=== PATIENT | female | born 1955 | race Caucasian/White ===

== ENCOUNTER → 2016-06-07 | Outpatient (CLI) | payer OTHER ==
[2016-06-07 10:09] LABS: ALT 46 U/L (9-52); AST 37 U/L (14-36); Alkaline Phosphatase 81 U/L (38-126); Anion Gap 14 mmol/L; Blood Urea Nitrogen 16 mg/dL (7-17); Calcium 9.6 mg/dL (8.4-10.2); Carbon Dioxide 26 mmol/L (22-30); Chloride 103 mmol/L (98-107); Cholesterol 176 mg/dL (<200); Glucose 136 mg/dL (74-99); HDL Cholesterol 51 mg/dL (40-60); Non-African American GFR(MDRD) >60 (>60 ml/min/1.73 sqM); Potassium 4.6 mmol/L (3.5-5.1); Sodium 143 mmol/L (137-145); Total Bilirubin 0.8 mg/dL (0.2-1.3); Total Protein 8.1 g/dL (6.3-8.2); Triglycerides 113 mg/dL (<150)
== END | disposition home or self-care (01) ==
LOC: LABWHC1 08:48
PROVIDERS: ATTEND Internal Medicine Endocrinology, Diabetes & Metabolism
DX: E11.65 Type 2 diabetes mellitus with hyperglycemia (principal)
CPT/HCPCS: 36415; 80053; 80061; 82043

== ENCOUNTER → 2016-12-27 | Outpatient (CLI) | payer OTHER ==
[2016-12-27 09:13] LABS: Basophils # (A) 0.1 k/uL (0-0.2); Basophils % (A) 1 %; CHCM 30.1; Eosinophils # (A) 0.1 k/uL (0-0.7); Eosinophils % (A) 2 %; HCT 42.5 % (34.0-46.0); HDW 3.02; HGB 13.2 gm/dL (11.4-16.0); Hypochromasia Marked; Luc # (Auto) 0.13; Luc % (Auto) 3; Lymphocytes # (A) 1.2 k/uL (1.0-4.8); Lymphocytes % (A) 22 %; MCH 23.8 pg (25.0-35.0); MCHC 31.2 g/dL (31.0-37.0); MCV 76.5 fL (80.0-100.0); Mean Platelet Volume 6.6; Microcytosis Slight; Monocytes # (A) 0.4 k/uL (0-1.0); Monocytes % (A) 7 %; Neutrophils # (A) 3.4 k/uL (1.3-7.7); Neutrophils % (A) 65 %; RBC 5.55 m/uL (3.80-5.40); RDW 15.7 % (11.5-15.5); WBC 5.3 k/uL (3.8-10.6); WBC (Perox) 5.51
[2016-12-27 09:17] LABS: ALT 64 U/L (9-52); AST 47 U/L (14-36); Alkaline Phosphatase 77 U/L (38-126); Anion Gap 12 mmol/L; Blood Urea Nitrogen 16 mg/dL (7-17); Calcium 9.5 mg/dL (8.4-10.2); Carbon Dioxide 26 mmol/L (22-30); Chloride 103 mmol/L (98-107); Cholesterol 171 mg/dL (<200); Glucose 165 mg/dL (74-99); HDL Cholesterol 51 mg/dL (40-60); Non-African American GFR(MDRD) >60 (>60 ml/min/1.73 sqM); Potassium 4.9 mmol/L (3.5-5.1); Sodium 141 mmol/L (137-145); Total Bilirubin 0.6 mg/dL (0.2-1.3); Total Protein 7.7 g/dL (6.3-8.2)
[2016-12-27 13:50] LABS: Hemoglobin A1C 8.2 % (4.2-6.1)
== END ==
LOC: LABWHC1 08:29
PROVIDERS: ATTEND Internal Medicine
DX: Z00.00 Encounter for general adult medical examination without abnormal findings (principal); E11.21 Type 2 diabetes mellitus with diabetic nephropathy; E03.9 Hypothyroidism, unspecified
CPT/HCPCS: 36415; 80053; 80061; 83036; 84443; 85025

== ENCOUNTER → 2018-04-26 | Outpatient (CLI) | payer OTHER ==
--- NOTE | 2018-04-26 15:54 | XR ---
EXAMINATION TYPE: XR knee complete RT DATE OF EXAM: 04/26/2018 CLINICAL HISTORY: Right knee pain after twisting injury TECHNIQUE: Three views of the right knee are obtained. COMPARISON: None. FINDINGS: There is no acute fracture/dislocation evident in right knee. There is mild medial compart ment joint space narrowing and very small tricompartmental osteophytes.. Fabella is incidentally note d. The overlying soft tissue appears unremarkable. IMPRESSION: There is no acute fracture or dislocation in the right knee. Mild tricompartmental arthr osis.
== END | disposition home or self-care (01) ==
LOC: RADXRMAIN 14:56
PROVIDERS: ATTEND Internal Medicine
DX: M17.11 Unilateral primary osteoarthritis, right knee (principal)

== ENCOUNTER → 2018-12-22 | Outpatient (CLI) | payer OTHER ==
--- NOTE | 2018-12-23 13:41 | MM ---
Reason for exam: screening (asymptomatic). Last mammogram was performed 17 years and 1 month ago. History: Patient is postmenopausal. Physical Findings: A clinical breast exam by your physician is recommended on an annual basis and results should be correlated with mammographic findings. MG Screening Mammo w CAD Bilateral CC and MLO view(s) were taken. Prior study comparison: November 15, 2001, bilateral screening mammogram. September 04, 2000, right breast special view mammogram. The breast tissue is heterogeneously dense. This may lower the sensitivity of mammography. Stable benign calcifications. There is no discrete abnormality. No significant changes when compared with prior studies. ASSESSMENT: Benign, BI-RAD 2 RECOMMENDATION: Routine screening mammogram of both breasts in 1 year.
== END | disposition home or self-care (01) ==
LOC: RADMAMWWP 12:38
PROVIDERS: ATTEND Internal Medicine
DX: Z12.31 Encounter for screening mammogram for malignant neoplasm of breast (principal)
CPT/HCPCS: 77067

== ENCOUNTER → 2019-10-12 | Outpatient (CLI) | payer OTHER | END | disposition home or self-care (01) | LOC: LABWHC1 12:40 | PROVIDERS: ATTEND Internal Medicine | DX: R50.9 Fever, unspecified (principal); R05 Cough; J80 Acute respiratory distress syndrome; Z20.828 Contact with and (suspected) exposure to other viral communicable diseases ==

== ENCOUNTER → 2019-10-28 | Outpatient (CLI) | payer OTHER | END | disposition home or self-care (01) | LOC: LABWHC1 10:39 | PROVIDERS: ATTEND Internal Medicine | DX: U07.1 COVID-19 (principal) | CPT/HCPCS: U0003; C9803 ==

== ENCOUNTER → 2019-10-31 | Outpatient (CLI) | payer OTHER | END | disposition home or self-care (01) | LOC: LABWHC1 15:03 | PROVIDERS: ATTEND Internal Medicine | DX: I06.9 Rheumatic aortic valve disease, unspecified (principal) | CPT/HCPCS: U0003; C9803 ==

== ENCOUNTER → 2020-01-13 | Outpatient (CLI) | payer OTHER, MEDICARE ==
--- NOTE | 2020-01-16 09:49 | MM ---
Reason for exam: screening (asymptomatic). Last mammogram was performed 1 year and 1 month ago. History: Patient is postmenopausal. Physical Findings: A clinical breast exam by your physician is recommended on an annual basis and results should be correlated with mammographic findings. MG 3D Screening Mammo W/Cad Bilateral CC and MLO view(s) were taken. Prior study comparison: December 22, 2018, bilateral MG screening mammo w CAD. November 15, 2001, bilateral screening mammogram. The breast tissue is heterogeneously dense. This may lower the sensitivity of mammography. Stable benign calcifications. There is no discrete abnormality. No significant changes when compared with prior studies. ASSESSMENT: Benign, BI-RAD 2 RECOMMENDATION: Routine screening mammogram of both breasts in 1 year.
== END | disposition home or self-care (01) ==
LOC: RADMAMWWP 12:54
PROVIDERS: ATTEND Family Medicine
DX: Z12.31 Encounter for screening mammogram for malignant neoplasm of breast (principal)
CPT/HCPCS: 77063; 77067

== ENCOUNTER → 2020-08-30 | Outpatient (CLI) | payer OTHER, MEDICARE ==
[2020-08-30 16:35] LABS: African American GFR (CKD) 77.8 (60.0-200.0); Albumin 4.5 g/dL (3.80-4.90); Albumin/Globulin Ratio 1.5 (1.60-3.17); Anion Gap 11.9 mmol/L (4.00-12.00); BUN/Creat Ratio 16.67 Ratio (12.00-20.00); Calcium 9.5 mg/dL (8.7-10.3); Carbon Dioxide 24.1 mmol/L (21.6-31.8); Chol/HDL Ratio 3.65; Non-African American GFR(CKD) 67.1 (60.0-200.0); Potassium 4.3 mmol/L (3.5-5.5); Total Bilirubin 0.6 mg/dL (0.3-1.2); Total Protein 7.5 g/dL (6.2-8.2)
[2020-08-30 19:11] LABS: Hemoglobin A1C 10.2 % (4.0-6.0)
== END | disposition home or self-care (01) ==
LOC: LABWHC1 07:21
PROVIDERS: ATTEND Internal Medicine Endocrinology, Diabetes & Metabolism
DX: E11.65 Type 2 diabetes mellitus with hyperglycemia (principal)
CPT/HCPCS: 36415; 80053; 80061; 83036; 84443

== ENCOUNTER → 2021-06-08 | Outpatient (CLI) | payer BC, MEDICARE ==
[2021-06-08 14:27] LABS: ALT 22 U/L (8-44); AST 33 U/L (13-35); African American GFR (CKD) 108.4 (60.0-200.0); Albumin 4.3 g/dL (3.8-4.9); Albumin/Globulin Ratio 1.24 (1.60-3.17); Alkaline Phosphatase 92 U/L (41-126); Blood Urea Nitrogen 10.8 mg/dL (9.0-27.0); Calcium 9.3 mg/dL (8.7-10.3); Carbon Dioxide 22.7 mmol/L (20.0-27.5); Chloride 103 mmol/L (96-109); Chol/HDL Ratio 3.24 Ratio; Globulin 3.4 g/dL (1.6-3.3); Glucose 143 mg/dL (70-110); LDL Cholesterol,Calculated 72.4 mg/dL (0.0-131.0); Non-African American GFR(CKD) 93.6 (60.0-200.0); Potassium 4.2 mmol/L (3.5-5.5); Sodium 140 mmol/L (135-145); Total Protein 7.7 g/dL (6.2-8.2); VLDL Calculation 18.18 mg/dL (5.00-40.00)
[2021-06-08 20:25] LABS: Microalbumin Creatinine Ratio <30 mg/g Creat (0-30); Urine Creatinine 73.3 mg/dL (28.0-217.0)
== END | disposition home or self-care (01) ==
LOC: LABWHC1 08:18
PROVIDERS: ATTEND Internal Medicine Endocrinology, Diabetes & Metabolism
DX: E11.65 Type 2 diabetes mellitus with hyperglycemia (principal)
CPT/HCPCS: 36415; 80053; 80061; 82043; 82570; 83036; 84443

== ENCOUNTER → 2021-09-17 | Outpatient (CLI) | payer BC, MEDICARE ==
--- NOTE | 2021-09-17 19:17 | BD ---
EXAMINATION TYPE: Axial Bone Density DATE OF EXAM: 09/17/2021 COMPARISON: NONE CLINICAL HISTORY: 65 years year old Female. ICD-10 CODE: Z78.0 Encounter for osteoprosis screening miki stern Z13.820 Height: 5 FT 1/2IN Weight: 187 FRAX RISK QUESTIONS: Alcohol (3 or more units per day): NO Family History (Parent hip fracture): NO Glucocorticoids (More than 3mos): NO (Ex: prednisone, prednisolone, methylprednisolone, dexamethasone, and hydrocortisone). History of Fracture in Adulthood: NO Secondary Osteoporosis: 1. Type 1 Diabetes: TYPE 2 2. Hyperthyroidism: NO 3. Menopause before 45: NO 4. Malnutrition: NO 5. Chronic liver disease: NO Rheumatoid Arthritis: NO Current Tobacco Use: NO RISK FACTORS HISTORY OF: Surgery to Spine/Hip(right/left)/Wrist (right/left): NO Family History of Osteoporosis: NO Active: YES Diet low in dairy products/other sources of calcium: NO Postmenopausal woman: YES Take estrogen and/or progesterone medications: NO Lost more than 2 inches in height since high school: NO Frequent falls: NO Poor Health: GOOD Hyperparathyroidism: NO Adrenal Insufficiency: NO MEDICATIONS: Thyroid Medications: YES Which medication: SYNTHROID How Lon YEARS Additional Medications: SYNTHROID, GLUCOPHAGE, METFORMIN, TRULICITY, LOTENSIN, ZOCOR, GLIMEPIRIDE, N ORVASC, XANAX, LANTUS, HUMALOG Additional History: EXAM MEASUREMENTS: Bone mineral densitometry was performed using the [employer]. Bone mineral density as measured about the Lumbar spine is: ----- L1-L4(G/cm2): 1.230 T Score Values are as follows: ----- L1: -0.5 ----- L2: -0.5 ----- L3: 0.2 ----- L4: 2.1 ----- L1-L4: 0.4 BASELINE Bone mineral density about the R hip (g/cm2): 0.836 Bone mineral density about the L hip (g/cm2): 0.853 T Score values are as follows: -----R Neck: -1.4 -----L Neck: -1.3 -----R Total: -0.2 -----L Total: 0.0 BASELINE FRAX%s: The graph provided illustrates a 8.5 % chance for a major osteoporotic fx and a 0.9 % chance for the hips probability for fx in 10 years time. IMPRESSION: Osteopenia (T Score between -2.5 and -1). There is slightly increased risk of fracture and the patient may be considered for treatment. Re-Screen 2-5 years. NOTE: T-SCORE=SD OF THE YOUNG ADULT MEAN.
== END | disposition home or self-care (01) ==
LOC: RADMAMWWP 15:00
PROVIDERS: ATTEND Internal Medicine
DX: Z13.820 Encounter for screening for osteoporosis (principal); Z12.31 Encounter for screening mammogram for malignant neoplasm of breast; Z78.0 Asymptomatic menopausal state
CPT/HCPCS: 77063; 77067; 77080

== ENCOUNTER → 2021-10-19 | Outpatient (CLI) | payer BC, MEDICARE ==
[2021-10-19 12:32] LABS: ALT 21 U/L (8-44); AST 35 U/L (13-35); African American GFR (CKD) 104.6 (60.0-200.0); Albumin 4.3 g/dL (3.8-4.9); Albumin/Globulin Ratio 1.23 (1.60-3.17); Alkaline Phosphatase 109 U/L (41-126); BUN/Creat Ratio 16.29 Ratio (12.00-20.00); Blood Urea Nitrogen 11.4 mg/dL (9.0-27.0); Calcium 9.4 mg/dL (8.7-10.3); Chloride 100 mmol/L (96-109); Chol/HDL Ratio 3.04 Ratio; Globulin 3.5 g/dL (1.6-3.3); Glucose 158 mg/dL (70-110); LDL Cholesterol,Calculated 68.2 mg/dL (0.0-131.0); Non-African American GFR(CKD) 90.3 (60.0-200.0); Potassium 4.6 mmol/L (3.5-5.5); Sodium 137 mmol/L (135-145); Total Protein 7.8 g/dL (6.2-8.2); VLDL Calculation 13.66 mg/dL (5.00-40.00)
[2021-10-19 22:18] LABS: Microalbumin Creatinine Ratio <30 mg/g Creat (0-30); Urine Creatinine 91.5 mg/dL (28.0-217.0)
== END | disposition home or self-care (01) ==
LOC: LABWHC1 08:06
PROVIDERS: ATTEND Internal Medicine Endocrinology, Diabetes & Metabolism
DX: E11.65 Type 2 diabetes mellitus with hyperglycemia (principal)
CPT/HCPCS: 36415; 80053; 80061; 82043; 82570; 83036; 84443

== ENCOUNTER → 2022-04-24 | Outpatient (CLI) | payer MEDICARE ==
[2022-04-24 11:27] LABS: Microalbumin Creatinine Ratio <30 mg/g Creat (0-30); Urine Creatinine 88.8 mg/dL (28.0-217.0)
[2022-04-24 12:03] LABS: ALT 16 U/L (8-44); AST 30 U/L (13-35); African American GFR (CKD) 109.3 (60.0-200.0); Albumin 4.7 g/dL (3.8-4.9); Albumin/Globulin Ratio 1.31 (1.60-3.17); Alkaline Phosphatase 97 U/L (41-126); BUN/Creat Ratio 20.83 Ratio (12.00-20.00); Blood Urea Nitrogen 12.5 mg/dL (9.0-27.0); Calcium 9.4 mg/dL (8.7-10.3); Carbon Dioxide 23.2 mmol/L (20.0-27.5); Chloride 101 mmol/L (96-109); Chol/HDL Ratio 2.95 Ratio; Globulin 3.6 g/dL (1.6-3.3); Glucose 169 mg/dL (70-110); LDL Cholesterol,Calculated 66.1 mg/dL (0.0-131.0); Non-African American GFR(CKD) 94.3 (60.0-200.0); Potassium 4.2 mmol/L (3.5-5.5); Sodium 138 mmol/L (135-145); Total Protein 8.3 g/dL (6.2-8.2); VLDL Calculation 14.58 mg/dL (5.00-40.00)
== END | disposition home or self-care (01) ==
LOC: LABWHC1 08:06
PROVIDERS: ATTEND Internal Medicine Endocrinology, Diabetes & Metabolism
DX: E11.65 Type 2 diabetes mellitus with hyperglycemia (principal)
CPT/HCPCS: 36415; 80053; 80061; 82043; 82570; 83036; 84443

== ENCOUNTER 2022-06-24 20:10 | Observation (INO) | payer MEDICARE ==
[2022-06-24 21:17] LABS: Anisocytosis Slight; Basophils # (A) 0.1 k/uL (0-0.2); Basophils % (A) 2 %; Eosinophils # (A) 0.1 k/uL (0-0.7); Eosinophils % (A) 2 %; HCT 23.6 % (34.0-46.0); Hypochromasia Marked; Lymphocytes # (A) 0.8 k/uL (1.0-4.8); Lymphocytes % (A) 15 %; MCH 15.3 pg (25.0-35.0); MCHC 25.6 g/dL (31.0-37.0); MCV 59.9 fL (80.0-100.0); Mean Platelet Volume 6.9; Microcytosis Marked; Monocytes # (A) 0.4 k/uL (0-1.0); Monocytes % (A) 7 %; Neutrophils # (A) 4.3 k/uL (1.3-7.7); Neutrophils % (A) 73 %; Platelet Count 349 k/uL (150-450); Poikilocytosis Slight; RBC 3.94 m/uL (3.80-5.40); RDW 19.3 % (11.5-15.5); WBC 5.8 k/uL (3.8-10.6)
[2022-06-24 21:27] LABS: ALT 19 U/L (4-34); AST 28 U/L (14-36); African American GFR (CKD) >90 (>60 ml/min/1.73 sqM); Albumin 4.4 g/dL (3.5-5.0); Alkaline Phosphatase 101 U/L (38-126); Anion Gap 12 mmol/L; Blood Urea Nitrogen 14 mg/dL (7-17); Calcium 8.9 mg/dL (8.4-10.2); Carbon Dioxide 22 mmol/L (22-30); Chloride 104 mmol/L (98-107); Glucose 208 mg/dL (74-99); Non-African American GFR(CKD) >90 (>60 ml/min/1.73 sqM); Potassium 4.6 mmol/L (3.5-5.1); Sodium 138 mmol/L (137-145); Total Bilirubin 0.8 mg/dL (0.2-1.3); Total Protein 8.2 g/dL (6.3-8.2)
[2022-06-24 21:56] LABS: Ovalocytes Present; Poikilocytosis (M) Present
[2022-06-24 21:58] LABS: Large Platelets Present
[2022-06-24] MEDS ORDERED: NALOXONE 0.4 MG/ML 1 ML VIAL IV PRN (22:10)
--- NOTE | 2022-06-24 22:10 | ED ---
General Adult HPI - General Chief complaint: Recheck/Abnormal Lab/Rx Stated complaint: low hemoglobin Time Seen by Provider: 06/24/22 20:55 Source: patient Limitations: no limitations - History of Present Illness Initial comments: 66-year-old female presents emergency department under the recommendation of her primary care office. She states that she went to have a physical. She does not have any symptoms. They ashkan routine laboratory studies. She received a call at 5:30 stating that her blood counts are low and that she had to go to the hospital. Patient admits to history of iron deficiency anemia in the past however is not currently on any medications for deficiency. She denies any bleeding. No bruising. No black or bloody stools. She denies having any symptoms to include shortness of breath or fatigue or sleepiness. No other alleviating, precipitating or modifying factors - Related Data Home Medications Medication Instructions Recorded Confirmed Benazepril HCl [Lotensin] 40 mg PO DAILY 07/16/15 06/24/22 ALPRAZolam [Xanax] 0.125 - 0.25 mg PO DAILY PRN 06/24/22 06/24/22 Dulaglutide [Trulicity] 1.5 mg SQ Q14D 06/24/22 06/24/22 Equate Allergy Relief 10mg 10 mg PO DAILY 06/24/22 06/24/22 Glimepiride [Amaryl] 6 mg PO DAILY 06/24/22 06/24/22 Insulin Aspart [NovoLOG Flexpen] 8 units SQ BID-W/MEALS 06/24/22 06/24/22 Insulin Aspart [NovoLOG Flexpen] 10 units SQ W/SUPPER 06/24/22 06/24/22 Insulin Glargine,Hum.rec.anlog 46 units SQ HS 06/24/22 06/24/22 [Lantus Solostar Pen] L.acidoph,Paracasei, B.lactis 1 cap PO DAILY 06/24/22 06/24/22 [Probiotic] Levothyroxine Sodium [Synthroid] 125 mcg PO DAILY 06/24/22 06/24/22 Simvastatin [Zocor] 20 mg PO DAILY 06/24/22 06/24/22 metFORMIN HCL ER [Glucophage XR] 1,000 mg PO BID 06/24/22 06/24/22 Previous Rx's Medication Instructions Recorded Ferrous Sulfate [Iron (65 MG 325 mg PO BID #60 tab 06/26/22 Elemental)] Allergies Allergy/AdvReac Type Severity Reaction Status Date / Time Penicillins Allergy Anaphylaxis Verified 06/24/22 21:32 azithromycin AdvReac Unknown Verified 06/24/22 21:32 Review of Systems ROS Statement: Those systems with pertinent positive or pertinent negative responses have been documented in the HPI. ROS Other: All systems not noted in ROS Statement are negative. Past Medical History Past Medical History: Diabetes Mellitus, Hypertension History of Any Multi-Drug Resistant Organisms: None Reported Past Surgical History: No Surgical Hx Reported Past Psychological History: No Psychological Hx Reported Past Alcohol Use History: None Reported Past Drug Use History: None Reported - Past Family History Mother Family Medical History: Hypertension General Exam Limitations: no limitations General appearance: alert, in no apparent distress Head exam: Present: atraumatic, normocephalic, normal inspection Eye exam: Present: normal appearance, PERRL, EOMI. Absent: scleral icterus, conjunctival injection, periorbital swelling ENT exam: Present: normal exam, mucous membranes moist Neck exam: Present: normal inspection. Absent: tenderness, meningismus, lymphadenopathy Respiratory exam: Present: normal lung sounds bilaterally. Absent: respiratory distress, wheezes, rales, rhonchi, stridor Cardiovascular Exam: Present: normal rhythm, tachycardia, normal heart sounds. Absent: systolic murmur, diastolic murmur, rubs, gallop, clicks GI/Abdominal exam: Present: soft, normal bowel sounds. Absent: distended, tenderness, guarding, rebound, rigid Extremities exam: Present: normal inspection, full ROM, normal capillary refill. Absent: tenderness, pedal edema, joint swelling, calf tenderness Back exam: Present: normal inspection Neurological exam: Present: alert, oriented X3, CN II-XII intact Psychiatric exam: Present: normal affect, normal mood Skin exam: Present: warm, dry, intact, normal color. Absent: rash Course Vital Signs 06/24/22 06/24/22 06/24/22 20:51 21:06 22:10 Temperature 98 F Pulse Rate 110 H 100 104 H Respiratory 20 20 16 Rate Blood Pressure 173/63 176/65 155/86 O2 Sat by Pulse 99 98 99 Oximetry 06/24/22 06/24/22 06/24/22 23:16 23:20 23:26 Temperature 97.7 F Pulse Rate 104 H 103 H 101 H Respiratory 18 11 L 16 Rate Blood Pressure 177/84 177/84 171/78 O2 Sat by Pulse 99 99 100 Oximetry 06/24/22 06/24/22 06/24/22 23:30 23:40 23:50 Temperature Pulse Rate 101 H 98 97 Respiratory 17 15 15 Rate Blood Pressure 171/78 171/78 171/78 O2 Sat by Pulse 99 97 98 Oximetry 06/24/22 06/25/22 06/25/22 23:55 00:00 00:08 Temperature 98 F 98.3 F Pulse Rate 101 H 98 Respiratory 16 15 16 Rate Blood Pressure 153/80 153/80 151/82 O2 Sat by Pulse 99 99 Oximetry 06/25/22 06/25/22 06/25/22 00:10 00:20 00:28 Temperature 98.5 F Pulse Rate 98 103 H 100 Respiratory 17 15 18 Rate Blood Pressure 151/82 154/77 154/77 O2 Sat by Pulse 99 98 99 Oximetry 06/25/22 06/25/22 06/25/22 00:30 00:40 00:50 Temperature Pulse Rate 98 Respiratory 12 Rate Blood Pressure 154/77 154/77 160/80 O2 Sat by Pulse 99 Oximetry 06/25/22 06/25/22 06/25/22 01:00 01:40 01:44 Temperature 98.3 F 98.3 F Pulse Rate 95 92 Respiratory 18 Rate Blood Pressure 160/80 167/83 O2 Sat by Pulse 98 99 Oximetry Medical Decision Making - Medical Decision Making Was pt. sent in by a medical professional or institution (, PA, OCCUPATIONAL PHYSICIAN, urgent care, hospital, or halfway...) When possible be specific @ -PCP office Did you speak to anyone other than the patient for history (EMS, parent, family, police, friend...)? What history was obtained from this source @ -No Did you review nursing and triage notes (agree or disagree)? Why? @ -I reviewed and agree with nursing and triage notes Were old charts reviewed (outside hosp., previous admission, EMS record, old EKG, old radiological studies, urgent care reports/EKG's, halfway records)? Report findings @ -No old charts were reviewed Differential Diagnosis (chest pain, altered mental status, abdominal pain women, abdominal pain men, vaginal bleeding, weakness, fever, dyspnea, syncope, headache, dizziness, GI bleed, back pain, seizure, CVA, palpatations, mental health, musculoskeletal)? @ -gi bleed, iron deficiency, mds. leukemia EKG interpreted by me (3pts min.). @ -Not done X-rays interpreted by me (1pt min.). @ -Not done CT interpreted by me (1pt min.). @ -None done U/S interpreted by me (1pt. min.). @ -None done What testing was considered but not performed or refused? (CT, X-rays, U/S, labs)? Why? @ -None What meds were considered but not given or refused? Why? @ -None Did you discuss the management of the patient with other professionals (professionals i.e. , PA, OCCUPATIONAL PHYSICIAN, lab, RT, psych nurse, social media intern, mold yard supervisor, teacher, commercial escrow officer, renal case manager)? Give summary @ -Dr. Rdz Was smoking cessation discussed for >3mins.? @ -No Was critical care preformed (if so, how long)? @ -Yes, 35 minutes for transfusion of blood products Were there social determinants of health that impacted care today? How? (Homelessness, low income, unemployed, alcoholism, drug addiction, tr ansportation, low edu. Level, literacy, decrease access to med. care, skilled nursing, rehab)? @ -No Was there de-escalation of care discussed even if they declined (Discuss DNR or withdrawal of care, Hospice)? DNR status @ -No What co-morbidities impacted this encounter? (DM, HTN, Smoking, COPD, CAD, Cancer, CVA, ARF, Chemo, Hep., AIDS, mental health diagnosis, sleep apnea, morbid obesity)? @ -None Was patient admitted / discharged? Hospital course, mention meds given and route, prescriptions, significant lab abnormalities, going to OR and other pertinent info. @ -Upon arrival patient was placed into room 26. A thorough history and physical exam was performed. IV access established laboratory studies repeated. He will open his 6. MCV is 59.5. Occult is negative. Patient is typed and screened. One unit of blood is ordered. Recommended admission for hematology consult. Spoke with Dr. Rdz who agreed to admit the patient. Undiagnosed new problem with uncertain prognosis? @ -yes Drug Therapy requiring intensive monitoring for toxicity (Heparin, Nitro, Insulin, Cardizem)? @ -Blood products Were any procedures done? @ -No Diagnosis/symptom? @ -acute/chronic anemia, mircocytic anemia Acute, or Chronic, or Acute on Chronic? @ -acute or possible chronic Uncomplicated (without systemic symptoms) or Complicated (systemic symptoms)? @ -complicated Side effects of treatment? @ -Anaphylaxis Exacerbation, Progression, or Severe Exacerbation? @ -No Poses a threat to life or bodily function? How? (Chest pain, USA, MA, pneumonia, PE, COPD, DKA, ARF, appy, cholecystitis, CVA, Diverticulitis, Homicidal, Suicidal, threat to staff... and all critical care pts) @ -yes - Lab Data Result diagrams: 06/26/22 07:20 06/25/22 07:03 Lab Results 06/24/22 06/24/22 06/24/22 Range/Units 20:00 21:00 21:00 WBC 5.8 (3.8-10.6) k/uL RBC 3.94 (3.80-5.40) m/uL Hgb 6.0 L* (11.4-16.0) gm/dL Hct 23.6 L (34.0-46.0) % MCV 59.9 L (80.0-100.0) fL MCH 15.3 L (25.0-35.0) pg MCHC 25.6 L (31.0-37.0) g/dL RDW 19.3 H (11.5-15.5) % Plt Count 349 (150-450) k/uL MPV 6.9 Neutrophils % 73 % Lymphocytes % 15 % Monocytes % 7 % Eosinophils % 2 % Basophils % 2 % Neutrophils # 4.3 (1.3-7.7) k/uL Lymphocytes # 0.8 L (1.0-4.8) k/uL Monocytes # 0.4 (0-1.0) k/uL Eosinophils # 0.1 (0-0.7) k/uL Basophils # 0.1 (0-0.2) k/uL Manual Slide Review Performed Large Platelets Present Hypochromasia Marked Poikilocytosis Slight Poikilocytosis (manual Present Anisocytosis Slight Microcytosis Marked Ovalocytes Present Retic Count (0.5-2.0) % Sodium 138 (137-145) mmol/L Potassium 4.6 (3.5-5.1) mmol/L Chloride 104 (98-107) mmol/L Carbon Dioxide 22 (22-30) mmol/L Anion Gap 12 mmol/L BUN 14 (7-17) mg/dL Creatinine 0.56 (0.52-1.04) mg/dL Est GFR (CKD-EPI)AfAm >90 (>60 ml/min/1.73 sqM) Est GFR (CKD-EPI)NonAf >90 (>60 ml/min/1.73 sqM) Glucose 208 H (74-99) mg/dL Calcium 8.9 (8.4-10.2) mg/dL Iron (50-170) ug/dL TIBC (228-460) ug/dL % Saturation (12.00-45.00) Transferrin (204.0-354.0) mg/dL Ferritin (10.0-291.0) ng/mL Total Bilirubin 0.8 (0.2-1.3) mg/dL AST 28 (14-36) U/L ALT 19 (4-34) U/L Alkaline Phosphatase 101 (38-126) U/L Total Protein 8.2 (6.3-8.2) g/dL Albumin 4.4 (3.5-5.0) g/dL Stool Occult Blood (Negative) Blood Type Blood Type Confirm Blood Type Recheck Bld Type Recheck Status Antibody Screen Crossmatch See Detail Spec Expiration Date 06/24/22 06/24/22 06/24/22 Range/Units 21:00 21:00 21:00 WBC (3.8-10.6) k/uL RBC (3.80-5.40) m/uL Hgb (11.4-16.0) gm/dL Hct (34.0-46.0) % MCV (80.0-100.0) fL MCH (25.0-35.0) pg MCHC (31.0-37.0) g/dL RDW (11.5-15.5) % Plt Count (150-450) k/uL MPV Neutrophils % % Lymphocytes % % Monocytes % % Eosinophils % % Basophils % % Neutrophils # (1.3-7.7) k/uL Lymphocytes # (1.0-4.8) k/uL Monocytes # (0-1.0) k/uL Eosinophils # (0-0.7) k/uL Basophils # (0-0.2) k/uL Manual Slide Review Large Platelets Hypochromasia Poikilocytosis Poikilocytosis (manual Anisocytosis Microcytosis Ovalocytes Retic Count (0.5-2.0) % Sodium (137-145) mmol/L Potassium (3.5-5.1) mmol/L Chloride (98-107) mmol/L Carbon Dioxide (22-30) mmol/L Anion Gap mmol/L BUN (7-17) mg/dL Creatinine (0.52-1.04) mg/dL Est GFR (CKD-EPI)AfAm (>60 ml/min/1.73 sqM) Est GFR (CKD-EPI)NonAf (>60 ml/min/1.73 sqM) Glucose (74-99) mg/dL Calcium (8.4-10.2) mg/dL Iron 12 L (50-170) ug/dL TIBC 501 H (228-460) ug/dL % Saturation 2.31 L (12.00-45.00) Transferrin 358.0 H 368.0 H (204.0-354.0) mg/dL Ferritin 3.5 L (10.0-291.0) ng/mL Total Bilirubin (0.2-1.3) mg/dL AST (14-36) U/L ALT (4-34) U/L Alkaline Phosphatase (38-126) U/L Total Protein (6.3-8.2) g/dL Albumin (3.5-5.0) g/dL Stool Occult Blood (Negative) Blood Type A Positive Blood Type Confirm Blood Type Recheck No Previous Record Bld Type Recheck Status CABO Indicated Antibody Screen NEGATIVE Crossmatch See Detail Spec Expiration Date 06/27/2022 - 229906/24/22 06/24/22 06/24/22 Range/Units 21:00 21:06 21:08 WBC (3.8-10.6) k/uL RBC (3.80-5.40) m/uL Hgb (11.4-16.0) gm/dL Hct (34.0-46.0) % MCV (80.0-100.0) fL MCH (25.0-35.0) pg MCHC (31.0-37.0) g/dL RDW (11.5-15.5) % Plt Count (150-450) k/uL MPV Neutrophils % % Lymphocytes % % Monocytes % % Eosinophils % % Basophils % % Neutrophils # (1.3-7.7) k/uL Lymphocytes # (1.0-4.8) k/uL Monocytes # (0-1.0) k/uL Eosinophils # (0-0.7) k/uL Basophils # (0-0.2) k/uL Manual Slide Review Large Platelets Hypochromasia Poikilocytosis Poikilocytosis (manual Anisocytosis Microcytosis Ovalocytes Retic Count 2.6 H (0.5-2.0) % Sodium (137-145) mmol/L Potassium (3.5-5.1) mmol/L Chloride (98-107) mmol/L Carbon Dioxide (22-30) mmol/L Anion Gap mmol/L BUN (7-17) mg/dL Creatinine (0.52-1.04) mg/dL Est GFR (CKD-EPI)AfAm (>60 ml/min/1.73 sqM) Est GFR (CKD-EPI)NonAf (>60 ml/min/1.73 sqM) Glucose (74-99) mg/dL Calcium (8.4-10.2) mg/dL Iron (50-170) ug/dL TIBC (228-460) ug/dL % Saturation (12.00-45.00) Transferrin (204.0-354.0) mg/dL Ferritin (10.0-291.0) ng/mL Total Bilirubin (0.2-1.3) mg/dL AST (14-36) U/L ALT (4-34) U/L Alkaline Phosphatase (38-126) U/L Total Protein (6.3-8.2) g/dL Albumin (3.5-5.0) g/dL Stool Occult Blood Negative (Negative) Blood Type Blood Type Confirm A Positive Blood Type Recheck Bld Type Recheck Status Antibody Screen Crossmatch Spec Expiration Date Critical Care Time Critical Care Time: Yes Critical Care Time: 35 minutes Disposition Clinical Impression: Anemia Disposition: ADMITTED IP TO THIS [facility] Condition: Stable Is patient prescribed a controlled substance at d/c from ED?: No Time of Disposition: 22:10 Decision to Admit Reason: Admit from EC Decision Date: 06/24/22 Decision Time: 22:10
[2022-06-25] MEDS ORDERED: amLODIPine 5 MG TAB PO STA (00:45)
[2022-06-25 00:59] LABS: Reticulocyte % 2.6 % (0.5-2.0)
[2022-06-25] MEDS ORDERED: metFORMIN 500 MG TAB PO SCH (01:00)
--- NOTE | 2022-06-25 01:08 | P.HPIM ---
History of Present Illness H&P Date: 06/24/22 The patient is a 66-year-old female with a PMH of type II DM, hypothyroidism, hypertension, and hyperlipidemia who was sent to the emergency room by her PCP for abnormal blood work. The patient states that she had undergone routine Medicare blood work earlier today and was called by her PCP to inform her that her hemoglobin was 5.8. The patient denies any prior history of anemia. Denies noticing any blood or black tarry material in her stools. Denies experiencing vaginal bleeding. Denies any family history of thalassemia or blood dyscrasias. States she underwent a colonoscopy 2 years ago which was completely unremarkable. Denies experiencing fatigue, weakness, numbness, tingling. Reports unchanged exercise tolerance. Review of systems: Pertinent positives and negatives as discussed in HPI, a complete review of systems was performed and all other systems are negative. Physical examination: Vital signs reviewed General: non toxic, no distress, appears at stated age, obese Derm: no unusual rashes/lesions, warm Head: atraumatic, normocephalic, symmetric Eyes: EOMI, no lid lag, anicteric sclera, pupils equal round reactive to light ENT: Nose and ears atraumatic Neck: No cervical lymphadenopathy, trachea midline, supple Mouth: no lip lesion, mucus membranes moist Cardiovascular: S1S2 reg, no murmur, positive dorsalis pedis pulse bilateral, no edema Lungs: CTA bilateral, no rhonchi, no rales, no accessory muscle use Abdominal: soft, nontender to palpation, no guarding Ext: muscle strength 5 out of 5 in all 4 extremities grossly, no gross muscle atrophy, no contractures, Neuro: CN II-XI grossly intact, no gross focal neuro deficits Psych: Alert, oriented, appropriate affect Assessment: Severe microcytic anemia Chronic conditions: Type II DM, hypertension, hyperlipidemia, hypothyroidism Imaging: None performed Data Review: Vital signs upon presentation at the emergency room her BP 173/63, pulse 110, respiratory rate 20, temp 98F, and SpO2 99% on room air. Laboratory evaluation was remarkable for hemoglobin of 6.0 with MCV 59.9. Prior CBC for comparison w as from 2017 with MCV 76.5 and hemoglobin 13.2. Plan: Obtain anemia panel including reticulocyte count and iron studies Patient denying recent weight loss. Low suspicion for anemia of chronic disease Obtain lead and zinc levels No obvious drug-causative agents noted although Glumepiride is known to cause hemolytic anemia Obtain haptoglobin, LDH, and bilirubin levels Obtain hemoglobin electrophoresis in setting of chronically low MCV Hematology consulted 1U pRBCs ordered Monitor CBC DVT prophylaxis: IPCDs The patient is admitted with an anticipated less than 2 midnight stay for evaluation of severe anemia CODE STATUS: Full Code Discussed with: Patient Anticipated discharge place: Home Past Medical History Past Medical History: Diabetes Mellitus, Hypertension History of Any Multi-Drug Resistant Organisms: None Reported Past Surgical History: No Surgical Hx Reported Past Psychological History: No Psychological Hx Reported Past Alcohol Use History: None Reported Past Drug Use History: None Reported - Past Family History Mother Family Medical History: Hypertension Medications and Allergies Home Medications Medication Instructions Recorded Confirmed Type Aspirin [Adult Low Dose Aspirin EC] 81 mg PO DAILY 07/16/15 06/24/22 History Benazepril HCl [Lotensin] 40 mg PO DAILY 07/16/15 06/24/22 History ALPRAZolam [Xanax] 0.125 - 0.25 mg PO DAILY PRN 06/24/22 06/24/22 History Dulaglutide [Trulicity] 1.5 mg SQ Q14D 06/24/22 06/24/22 History Equate Allergy Relief 10mg 10 mg PO DAILY 06/24/22 06/24/22 History Glimepiride [Amaryl] 6 mg PO DAILY 06/24/22 06/24/22 History Insulin Aspart [NovoLOG Flexpen] 8 units SQ BID-W/MEALS 06/24/22 06/24/22 History Insulin Aspart [NovoLOG Flexpen] 10 units SQ W/SUPPER 06/24/22 06/24/22 History Insulin Glargine,Hum.rec.anlog 46 units SQ HS 06/24/22 06/24/22 History [Lantus Solostar Pen] L.acidoph,Paracasei, B.lactis 1 cap PO DAILY 06/24/22 06/24/22 History [Probiotic] Levothyroxine Sodium [Synthroid] 125 mcg PO DAILY 06/24/22 06/24/22 History Nystatin 100,000Unit/gm Cream 1 applic TOPICAL TID PRN 06/24/22 06/24/22 History [Mycostatin Cream] Simvastatin [Zocor] 20 mg PO DAILY 06/24/22 06/24/22 History metFORMIN HCL ER [Glucophage XR] 1,000 mg PO BID 06/24/22 06/24/22 History Allergies Allergy/AdvReac Type Severity Reaction Status Date / Time Penicillins Allergy Anaphylaxis Verified 06/24/22 21:32 azithromycin AdvReac Unknown Verified 06/24/22 21:32 Physical Exam Vitals: Vital Signs Temp Pulse Resp BP Pulse Ox 06/25/22 00:08 98.3 F 98 16 151/82 06/24/22 23:55 98 F 16 153/80 99 06/24/22 23:26 97.7 F 06/24/22 23:20 103 H 11 L 177/84 99 06/24/22 23:16 104 H 18 177/84 99 06/24/22 22:10 104 H 16 155/86 99 06/24/22 21:06 100 20 176/65 98 06/24/22 20:51 98 F 110 H 20 173/63 99 Intake and Output 06/24/22 06/24/22 06/25/22 14:59 22:59 06:59 Intake Total 0 Balance 0 Intake: Blood Product 0 Rc As-1 Unit 0 [id number] Other: Weight 84.368 kg Results CBC & Chem 7: 06/24/22 21:00 06/24/22 21:00 Labs: Abnormal Lab Results - Last 24 Hours (Table) 06/24/22 06/24/22 06/24/22 Range/Units 20:00 21:00 21:00 Hgb 6.0 L* (11.4-16.0) gm/dL Hct 23.6 L (34.0-46.0) % MCV 59.9 L (80.0-100.0) fL MCH 15.3 L (25.0-35.0) pg MCHC 25.6 L (31.0-37.0) g/dL RDW 19.3 H (11.5-15.5) % Lymphocytes # 0.8 L (1.0-4.8) k/uL Glucose 208 H (74-99) mg/dL Crossmatch See Detail 06/24/22 Range/Units 21:00 Hgb (11.4-16.0) gm/dL Hct (34.0-46.0) % MCV (80.0-100.0) fL MCH (25.0-35.0) pg MCHC (31.0-37.0) g/dL RDW (11.5-15.5) % Lymphocytes # (1.0-4.8) k/uL Glucose (74-99) mg/dL Crossmatch See Detail
[2022-06-25] MEDS: INSULIN DETEMIR (LEVEMIR) 100 UNIT/ML SYR SQ SCH ×2 (01:41→20:28)
[2022-06-25 03:55] LABS: % Iron Saturation 2.31 (12.00-45.00); Ferritin 3.5 ng/mL (10.0-291.0)
[2022-06-25] MEDS: INSULIN ASPART (NovoLOG) 100 UNIT/ML VIAL SQ SCH ×2 (06:44→13:26)
[2022-06-25] MEDS: LEVOTHYROXINE 125 MCG TAB PO SCH (06:46)
[2022-06-25 08:21] LABS: Anisocytosis Moderate; Basophils # (A) 0.1 k/uL (0-0.2); Basophils % (A) 1 %; Eosinophils # (A) 0.1 k/uL (0-0.7); Eosinophils % (A) 2 %; HCT 26.9 % (34.0-46.0); HGB 7.4 gm/dL (11.4-16.0); Hypochromasia Marked; Lymphocytes # (A) 1.3 k/uL (1.0-4.8); Lymphocytes % (A) 22 %; MCH 17.7 pg (25.0-35.0); MCHC 27.4 g/dL (31.0-37.0); MCV 64.6 fL (80.0-100.0); Mean Platelet Volume 7.2; Microcytosis Marked; Monocytes # (A) 0.5 k/uL (0-1.0); Monocytes % (A) 9 %; Neutrophils # (A) 3.7 k/uL (1.3-7.7); Neutrophils % (A) 62 %; Platelet Count 312 k/uL (150-450); Poikilocytosis Marked; RBC 4.16 m/uL (3.80-5.40); RDW 23.2 % (11.5-15.5)
[2022-06-25 08:22] LABS: ALT 17 U/L (4-34); AST 31 U/L (14-36); African American GFR (CKD) >90 (>60 ml/min/1.73 sqM); Albumin 4.1 g/dL (3.5-5.0); Alkaline Phosphatase 84 U/L (38-126); Anion Gap 11 mmol/L; Blood Urea Nitrogen 11 mg/dL (7-17); Carbon Dioxide 22 mmol/L (22-30); Chloride 106 mmol/L (98-107); Glucose 135 mg/dL (74-99); Non-African American GFR(CKD) >90 (>60 ml/min/1.73 sqM); Potassium 4.2 mmol/L (3.5-5.1); Sodium 139 mmol/L (137-145); Total Bilirubin 1.9 mg/dL (0.2-1.3); Total Protein 7.6 g/dL (6.3-8.2)
[2022-06-25] MEDS: ATORVASTATIN 10 MG TAB PO SCH (08:40)
[2022-06-25] MEDS: lisinopriL 20 MG TAB PO SCH (08:40)
[2022-06-25] MEDS ORDERED: GLIMEPIRIDE 2 MG TAB PO SCH (09:00)
[2022-06-25] MEDS: SODIUM FERRIC GLUCONAT-SUCROSE 125 MG in SODIUM CHLORIDE 0.9% 100 ML IVPB SCH (10:01)
--- NOTE | 2022-06-25 12:45 | P.GSCN ---
History of Present Illness Consult date: 06/25/22 History of present illness: CHIEF COMPLAINT: Anemia HISTORY OF PRESENT ILLNESS: This is a 66-year-old female who presented to the hospital due to having a low hemoglobin found in the outpatient labs. Her hemoglobin by her PCP was reported at 5.8. Patient was informed to come to the ER due to her anemia. Patient denies any blood in her stools or black stools. Denies any abdominal pain. Denies any nausea or vomiting. She does have a known history of iron deficiency anemia. Currently not on iron. Hemoglobin on admission 6. She did receive 1 unit of blood hemoglobin has come up to 7.4. Her iron level was low at 12. Stool for occult blood is negative. She has been seen by hematology. He recommended a consult for EGD and colonoscopy. Patient reports that she has seen Dr. Cheema in the past and had last colonoscopy about 3 years ago. Patient reports that it was negative. She's never had EGD. She is on aspirin at home. No other blood thinners. PAST MEDICAL HISTORY: See below PAST SURGICAL HISTORY: See below MEDICATIONS: See below ALLERGIES: See below SOCIAL HISTORY: No illicit drug use. REVIEW OF SYSTEMS: CONSTITUTIONAL: Denies fever or chills. HEENT: Denies blurred vision, vision changes, or eye pain. Denies hemoptysis CARDIOVASCULAR: Denies chest pain or pressure. RESPIRATORY: No shortness of breath. GASTROINTESTINAL: See HPI for pertinent findings HEMATOLOGIC: Denies bleeding disorders. GENITOURINARY: Denies any blood in urine or increased urinary frequency. SKIN: Denies pruitis. Denies rash. PHYSICAL EXAM: VITAL SIGNS: Reviewed GENERAL: Well-developed in no acute distress. HEENT: No sclera icterus. Extraocular movements grossly intact. Moist buccal mucosa. Head is atraumatic, normocephalic. No nasal drainage. ABDOMEN: Soft. Nondistended. Nontender NEUROLOGIC: Alert and oriented. Cranial nerves II through XII grossly intact. LABORATORY DATA: WBC 6.0 hgb6.0-7.4 platelets 312 MCV 64.6 sodium is 139 potassium 4.2 creatinine 0.51 glucose 135 Iron level 12 Stool for occult blood IMAGING: ASSESSMENT: 1. Iron deficiency anemia with no active bleeding PLAN: -Recommended EGD and colonoscopy for anemia workup. At this time patient is refusing endoscopies. -Continue supportive care -Continue IV iron -Continue to monitor for any signs or symptoms of bleeding -Continue to monitor hemoglobin Thank you for this consultation Physician Proposal Development Manager note has been reviewed by physician. Signing provider agrees with the documented findings, assessment, and plan of care. Past Medical History Past Medical History: Diabetes Mellitus, Hypertension History of Any Multi-Drug Resistant Organisms: None Reported Past Surgical History: No Surgical Hx Reported Past Psychological History: No Psychological Hx Reported Past Alcohol Use History: None Reported Past Drug Use History: None Reported - Past Family History Mother Family Medical History: Hypertension Medications and Allergies Home Medications Medication Instructions Recorded Confirmed Type Aspirin [Adult Low Dose Aspirin EC] 81 mg PO DAILY 07/16/15 06/24/22 History Benazepril HCl [Lotensin] 40 mg PO DAILY 07/16/15 06/24/22 History ALPRAZolam [Xanax] 0.125 - 0.25 mg PO DAILY PRN 06/24/22 06/24/22 History Dulaglutide [Trulicity] 1.5 mg SQ Q14D 06/24/22 06/24/22 History Equate Allergy Relief 10mg 10 mg PO DAILY 06/24/22 06/24/22 History Glimepiride [Amaryl] 6 mg PO DAILY 06/24/22 06/24/22 History Insulin Aspart [NovoLOG Flexpen] 8 units SQ BID-W/MEALS 06/24/22 06/24/22 History Insulin Aspart [NovoLOG Flexpen] 10 units SQ W/SUPPER 06/24/22 06/24/22 History Insulin Glargine,Hum.rec.anlog 46 units SQ HS 06/24/22 06/24/22 History [Lantus Solostar Pen] L.acidoph,Paracasei, B.lactis 1 cap PO DAILY 06/24/22 06/24/22 History [Probiotic] Levothyroxine Sodium [Synthroid] 125 mcg PO DAILY 06/24/22 06/24/22 History Nystatin 100,000Unit/gm Cream 1 applic TOPICAL TID PRN 06/24/22 06/24/22 History [Mycostatin Cream] Simvastatin [Zocor] 20 mg PO DAILY 06/24/22 06/24/22 History metFORMIN HCL ER [Glucophage XR] 1,000 mg PO BID 06/24/22 06/24/22 History Allergies Allergy/AdvReac Type Severity Reaction Status Date / Time Penicillins Allergy Anaphylaxis Verified 06/24/22 21:32 azithromycin AdvReac Unknown Verified 06/24/22 21:32 Surgical - Exam Vital Signs Temp Pulse Resp BP Pulse Ox 98 F 110 H 20 173/63 99 06/24/22 20:51 06/24/22 20:51 06/24/22 20:51 06/24/22 20:51 06/24/22 20:51 Results - Labs 06/25/22 07:03 06/25/22 07:03 Abnormal Lab Results - Last 24 Hours (Table) 06/24/22 06/24/22 06/24/22 Range/Units 20:00 21:00 21:00 Hgb 6.0 L* (11.4-16.0) gm/dL Hct 23.6 L (34.0-46.0) % MCV 59.9 L (80.0-100.0) fL MCH 15.3 L (25.0-35.0) pg MCHC 25.6 L (31.0-37.0) g/dL RDW 19.3 H (11.5-15.5) % Lymphocytes # 0.8 L (1.0-4.8) k/uL Retic Count (0.5-2.0) % Creatinine (0.52-1.04) mg/dL Glucose 208 H (74-99) mg/dL Iron (50-170) ug/dL TIBC (228-460) ug/dL % Saturation (12.00-45.00) Transferrin (204.0-354.0) mg/dL Ferritin (10.0-291.0) ng/mL Total Bilirubin (0.2-1.3) mg/dL Crossmatch See Detail 06/24/22 06/24/22 06/24/22 Range/Units 21:00 21:00 21:00 Hgb (11.4-16.0) gm/dL Hct (34.0-46.0) % MCV (80.0-100.0) fL MCH (25.0-35.0) pg MCHC (31.0-37.0) g/dL RDW (11.5-15.5) % Lymphocytes # (1.0-4.8) k/uL Retic Count (0.5-2.0) % Creatinine (0.52-1.04) mg/dL Glucose (74-99) mg/dL Iron 12 L (50-170) ug/dL TIBC 501 H (228-460) ug/dL % Saturation 2.31 L (12.00-45.00) Transferrin 358.0 H 368.0 H (204.0-354.0) mg/dL Ferritin 3.5 L (10.0-291.0) ng/mL Total Bilirubin (0.2-1.3) mg/dL Crossmatch See Detail 06/24/22 06/25/22 06/25/22 Range/Units 21:00 07:03 07:03 Hgb 7.4 L (11.4-16.0) gm/dL Hct 26.9 L (34.0-46.0) % MCV 64.6 L (80.0-100.0) fL MCH 17.7 L (25.0-35.0) pg MCHC 27.4 L (31.0-37.0) g/dL RDW 23.2 H (11.5-15.5) % Lymphocytes # (1.0-4.8) k/uL Retic Count 2.6 H (0.5-2.0) % Creatinine 0.51 L (0.52-1.04) mg/dL Glucose 135 H (74-99) mg/dL Iron (50-170) ug/dL TIBC (228-460) ug/dL % Saturation (12.00-45.00) Transferrin (204.0-354.0) mg/dL Ferritin (10.0-291.0) ng/mL Total Bilirubin 1.9 H (0.2-1.3) mg/dL Crossmatch Diabetes panel 06/24/22 06/25/22 Range/Units 21:00 07:03 Sodium 138 139 (137-145) mmol/L Potassium 4.6 4.2 (3.5-5.1) mmol/L Chloride 104 106 (98-107) mmol/L Carbon Dioxide 22 22 (22-30) mmol/L BUN 14 11 (7-17) mg/dL Creatinine 0.56 0.51 L (0.52-1.04) mg/dL Glucose 208 H 135 H (74-99) mg/dL Calcium 8.9 9.0 (8.4-10.2) mg/dL AST 28 31 (14-36) U/L ALT 19 17 (4-34) U/L Alkaline Phosphatase 101 84 (38-126) U/L Total Protein 8.2 7.6 (6.3-8.2) g/dL Albumin 4.4 4.1 (3.5-5.0) g/dL Calcium panel 06/24/22 06/25/22 Range/Units 21:00 07:03 Calcium 8.9 9.0 (8.4-10.2) mg/dL Albumin 4.4 4.1 (3.5-5.0) g/dL Pituitary panel 06/24/22 06/25/22 Range/Units 21:00 07:03 Sodium 138 139 (137-145) mmol/L Potassium 4.6 4.2 (3.5-5.1) mmol/L Chloride 104 106 (98-107) mmol/L Carbon Dioxide 22 22 (22-30) mmol/L BUN 14 11 (7-17) mg/dL Creatinine 0.56 0.51 L (0.52-1.04) mg/dL Glucose 208 H 135 H (74-99) mg/dL Calcium 8.9 9.0 (8.4-10.2) mg/dL Adrenal panel 06/24/22 06/25/22 Range/Units 21:00 07:03 Sodium 138 139 (137-145) mmol/L Potassium 4.6 4.2 (3.5-5.1) mmol/L Chloride 104 106 (98-107) mmol/L Carbon Dioxide 22 22 (22-30) mmol/L BUN 14 11 (7-17) mg/dL Creatinine 0.56 0.51 L (0.52-1.04) mg/dL Glucose 208 H 135 H (74-99) mg/dL Calcium 8.9 9.0 (8.4-10.2) mg/dL Total Bilirubin 0.8 1.9 H (0.2-1.3) mg/dL AST 28 31 (14-36) U/L ALT 19 17 (4-34) U/L Alkaline Phosphatase 101 84 (38-126) U/L Total Protein 8.2 7.6 (6.3-8.2) g/dL Albumin 4.4 4.1 (3.5-5.0) g/dL
--- NOTE | 2022-06-25 14:21 | P.PN ---
Subjective Progress Note Date: 06/25/22 The patient is a 66-year-old female with a PMH of type II DM, hypothyroidism, hypertension, and hyperlipidemia who was sent to the emergency room by her PCP for abnormal blood work. The patient states that she had undergone routine Medicare blood work earlier today and was called by her PCP to inform her that her hemoglobin was 5.8. The patient denies any prior history of anemia. Denies noticing any blood or black tarry material in her stools. Denies experiencing vaginal bleeding. Denies any family history of thalassemia or blood dyscrasias. States she underwent a colonoscopy 2 years ago which was completely unremarkable. Denies experiencing fatigue, weakness, numbness, tingling. Reports unchanged exercise tolerance. Vital signs upon presentation at the emergency room her BP 173/63, pulse 110, respiratory rate 20, temp 98F, and SpO2 99% on room air. Laboratory evaluation was remarkable for hemoglobin of 6.0 with MCV 59.9. Prior CBC for comparison was from 2017 with MCV 76.5 and he moglobin 13.2. Patient was transfused 1 unit PRBC. Repeat hemoglobin was 7.4. Iron studies showed iron of 12, TIBC of 501, percent saturation 2.31, ferritin of 3.5. Stool for occult blood was negative. She was started on ferrous gluconate 125 mg IV daily. Patient was seen and examined this morning. No acute events overnight. Patient denies chest pain, shortness breath, dizziness or palpitations. General: non toxic, no distress, appears at stated age Derm: warm, dry Head: atraumatic, normocephalic, symmetric Eyes: EOMI, no lid lag, anicteric sclera Mouth: no lip lesion, mucus membranes moist Cardiovascular: S1S2 reg, no murmur Lungs: CTA bilateral, no rhonchi, no rales , no accessory muscle use Ext: no gross muscle atrophy, no edema, no contractures Neuro: no focal neuro deficits Psych: Alert, oriented, appropriate affect #Severe microcytic anemia Chronic conditions: Type II DM, hypertension, hyperlipidemia, hypothyroidism Based on my assessment of this patient, this patient meets a moderate complexity level of care. I have reviewed the following [employer] consultant notes: Surgery note 06/25, recommends EGD/colonoscopy which patient is refusing at this time. I have reviewed the results of the following tests: CBC shows hemoglobin of 7.4 with MCV of 64.6. Iron study shows iron of 12, % saturation of 2.31, ferritin of 3.5 indicating iron deficiency anemia. I have ordered the following tests: Repeat CBC ordered for tomorrow morning. I have discussed the care of this patient with the following independent historian: None. I have independently interpreted the following test below: None. I have discussed the management of this patient with the following physician: None. This patient has a moderate risk of morbidity due to the following reasons: Patient has a new diagnosis of microcytic anemia requiring transfusion with uncertain prognosis. Patient started on ferrous gluconate 125 mg IV daily. CBC will be repeated tomorrow morning. Patient refusing EGD and colonoscopy. Anticipate discharge home tomorrow if hemoglobin remained stable. Objective - Vital Signs Vital signs: Vital Signs Temp 98.0 F 06/25/22 11:10 Pulse 92 06/25/22 11:10 Resp 16 06/25/22 11:10 BP 140/66 06/25/22 11:10 Pulse Ox 99 06/25/22 11:10 FiO2 Intake & Output 06/24/22 06/25/22 06/25/22 18:59 06:59 18:59 Intake Total 310 118 Output Total 540 Balance -230 118 Weight 84.368 kg Intake: Oral 118 Blood Product 310 Rc As-1 Unit 310 [id number] Output: Urine 540 Other: Voiding Method Toilet - Labs CBC & Chem 7: 06/25/22 07:03 06/25/22 07:03 Labs: Abnormal Lab Results - Last 24 Hours (Table) 06/24/22 06/24/22 06/24/22 Range/Units 20:00 21:00 21:00 Hgb 6.0 L* (11.4-16.0) gm/dL Hct 23.6 L (34.0-46.0) % MCV 59.9 L (80.0-100.0) fL MCH 15.3 L (25.0-35.0) pg MCHC 25.6 L (31.0-37.0) g/dL RDW 19.3 H (11.5-15.5) % Lymphocytes # 0.8 L (1.0-4.8) k/uL Retic Count (0.5-2.0) % Creatinine (0.52-1.04) mg/dL Glucose 208 H (74-99) mg/dL Iron (50-170) ug/dL TIBC (228-460) ug/dL % Saturation (12.00-45.00) Transferrin (204.0-354.0) mg/dL Ferritin (10.0-291.0) ng/mL Total Bilirubin (0.2-1.3) mg/dL Crossmatch See Detail 06/24/22 06/24/22 06/24/22 Range/Units 21:00 21:00 21:00 Hgb (11.4-16.0) gm/dL Hct (34.0-46.0) % MCV (80.0-100.0) fL MCH (25.0-35.0) pg MCHC (31.0-37.0) g/dL RDW (11.5-15.5) % Lymphocytes # (1.0-4.8) k/uL Retic Count (0.5-2.0) % Creatinine (0.52-1.04) mg/dL Glucose (74-99) mg/dL Iron 12 L (50-170) ug/dL TIBC 501 H (228-460) ug/dL % Saturation 2.31 L (12.00-45.00) Transferrin 358.0 H 368.0 H (204.0-354.0) mg/dL Ferritin 3.5 L (10.0-291.0) ng/mL Total Bilirubin (0.2-1.3) mg/dL Crossmatch See Detail 06/24/22 06/25/22 06/25/22 Range/Units 21:00 07:03 07:03 Hgb 7.4 L (11.4-16.0) gm/dL Hct 26.9 L (34.0-46.0) % MCV 64.6 L (80.0-100.0) fL MCH 17.7 L (25.0-35.0) pg MCHC 27.4 L (31.0-37.0) g/dL RDW 23.2 H (11.5-15.5) % Lymphocytes # (1.0-4.8) k/uL Retic Count 2.6 H (0.5-2.0) % Creatinine 0.51 L (0.52-1.04) mg/dL Glucose 135 H (74-99) mg/dL Iron (50-170) ug/dL TIBC (228-460) ug/dL % Saturation (12.00-45.00) Transferrin (204.0-354.0) mg/dL Ferritin (10.0-291.0) ng/mL Total Bilirubin 1.9 H (0.2-1.3) mg/dL Crossmatch
--- NOTE | 2022-06-25 16:34 | P.CONS ---
History of Present Illness - Reason for Consult Consult date: 06/25/22 anemia Requesting physician: Ynes Seay - Chief Complaint anemia - History of Present Illness Patient is a 66-year-old female with a PMH of type II DM, hypothyroidism, hypertension, and hyperlipidemia. We were consulted for anemia. Pt was sent to the emergency room by her PCP for abnormal hemoglobin of 5.8. The patient reports having anemia in the past, but was over 30 years ago. Her only complaint was fatigue, which she attributed to over doing at home with spring cleaning. She denies blood in stool, melena, hematuria, or vaginal bleeding. Denies any f amily history of thalassemia or blood disorders. States she underwent a colonoscopy 2.5 years ago which was normal. She denies having an EGD in the past. Denies chest pain, palpitations, dizziness and SOB. Review of Systems 10 point ROS is negative except as stated in the HPI Past Medical History Past Medical History: Diabetes Mellitus, Hypertension History of Any Multi-Drug Resistant Organisms: None Reported Past Surgical History: No Surgical Hx Reported Past Psychological History: No Psychological Hx Reported Past Alcohol Use History: None Reported Past Drug Use History: None Reported - Past Family History Mother Family Medical History: Hypertension Medications and Allergies Home Medications Medication Instructions Recorded Confirmed Type Aspirin [Adult Low Dose Aspirin EC] 81 mg PO DAILY 07/16/15 06/24/22 History Benazepril HCl [Lotensin] 40 mg PO DAILY 07/16/15 06/24/22 History ALPRAZolam [Xanax] 0.125 - 0.25 mg PO DAILY PRN 06/24/22 06/24/22 History Dulaglutide [Trulicity] 1.5 mg SQ Q14D 06/24/22 06/24/22 History Equate Allergy Relief 10mg 10 mg PO DAILY 06/24/22 06/24/22 History Glimepiride [Amaryl] 6 mg PO DAILY 06/24/22 06/24/22 History Insulin Aspart [NovoLOG Flexpen] 8 units SQ BID-W/MEALS 06/24/22 06/24/22 History Insulin Aspart [NovoLOG Flexpen] 10 units SQ W/SUPPER 06/24/22 06/24/22 History Insulin Glargine,Hum.rec.anlog 46 units SQ HS 06/24/22 06/24/22 History [Lantus Solostar Pen] L.acidoph,Paracasei, B.lactis 1 cap PO DAILY 06/24/22 06/24/22 History [Probiotic] Levothyroxine Sodium [Synthroid] 125 mcg PO DAILY 06/24/22 06/24/22 History Nystatin 100,000Unit/gm Cream 1 applic TOPICAL TID PRN 06/24/22 06/24/22 History [Mycostatin Cream] Simvastatin [Zocor] 20 mg PO DAILY 06/24/22 06/24/22 History metFORMIN HCL ER [Glucophage XR] 1,000 mg PO BID 06/24/22 06/24/22 History Allergies Allergy/AdvReac Type Severity Reaction Status Date / Time Penicillins Allergy Anaphylaxis Verified 06/24/22 21:32 azithromycin AdvReac Unknown Verified 06/24/22 21:32 Physical Exam Vitals: Vital Signs Temp Pulse Pulse Resp BP BP Pulse Ox 06/25/22 11:10 98.0 F 92 16 140/66 99 06/25/22 08:25 98.1 F 82 16 133/67 99 06/25/22 03:20 97.3 F L 85 16 151/74 99 06/25/22 03:00 97.3 F L 85 16 151/74 99 06/25/22 02:07 97.9 F 91 16 158/76 99 06/25/22 01:44 98.3 F 06/25/22 01:40 98.3 F 92 18 167/83 99 06/25/22 01:00 95 160/80 98 06/25/22 00:50 98 12 160/80 99 06/25/22 00:40 154/77 06/25/22 00:30 154/77 06/25/22 00:28 98.5 F 100 18 154/77 99 06/25/22 00:20 103 H 15 154/77 98 06/25/22 00:10 98 17 151/82 99 06/25/22 00:08 98.3 F 98 16 151/82 06/25/22 00:00 101 H 15 153/80 99 06/24/22 23:55 98 F 16 153/80 99 06/24/22 23:50 97 15 171/78 98 06/24/22 23:40 98 15 171/78 97 06/24/22 23:30 101 H 17 171/78 99 06/24/22 23:26 97.7 F 101 H 16 171/78 100 06/24/22 23:20 103 H 11 L 177/84 99 06/24/22 23:16 104 H 18 177/84 99 06/24/22 22:10 104 H 16 155/86 99 06/24/22 21:06 100 20 176/65 98 06/24/22 20:51 98 F 110 H 20 173/63 99 Intake and Output 06/25/22 06/25/22 06/25/22 06:59 14:59 22:59 Intake Total 310 118 Output Total 540 Balance -230 118 Intake: Oral 118 Blood Product 310 Rc As-1 Unit 310 [id number] Output: Urine 540 Other: Voiding Method Toilet Weight 84.368 kg - Constitutional General appearance: average body habitus, no acute distress - EENT Eyes: anicteric sclerae, edentulous ENT: hearing grossly normal - Respiratory Respiratory: bilateral: CTA - Cardiovascular Rhythm: regular Heart sounds: normal: S1, S2 Abnormal Heart Sounds: no systolic murmur, no diastolic murmur, no rub, no S3 Gallop, no S4 Gallop, no click, no other - Gastrointestinal General gastrointestinal: soft, no tenderness - Integumentary Integumentary: pale - Neurologic grossly intact - Musculoskeletal Musculoskeletal: strength equal bilaterally - Psychiatric Psychiatric: A&O x's 3, appropriate affect, intact judgment & insight Results CBC & Chem 7: 06/25/22 07:03 06/25/22 07:03 Labs: Abnormal Lab Results - Last 24 Hours (Table) 06/24/22 06/24/22 06/24/22 Range/Units 20:00 21:00 21:00 Hgb 6.0 L* (11.4-16.0) gm/dL Hct 23.6 L (34.0-46.0) % MCV 59.9 L (80.0-100.0) fL MCH 15.3 L (25.0-35.0) pg MCHC 25.6 L (31.0-37.0) g/dL RDW 19.3 H (11.5-15.5) % Lymphocytes # 0.8 L (1.0-4.8) k/uL Retic Count (0.5-2.0) % Creatinine (0.52-1.04) mg/dL Glucose 208 H (74-99) mg/dL Iron (50-170) ug/dL TIBC (228-460) ug/dL % Saturation (12.00-45.00) Transferrin (204.0-354.0) mg/dL Ferritin (10.0-291.0) ng/mL Total Bilirubin (0.2-1.3) mg/dL Crossmatch See Detail 06/24/22 06/24/22 06/24/22 Range/Units 21:00 21:00 21:00 Hgb (11.4-16.0) gm/dL Hct (34.0-46.0) % MCV (80.0-100.0) fL MCH (25.0-35.0) pg MCHC (31.0-37.0) g/dL RDW (11.5-15.5) % Lymphocytes # (1.0-4.8) k/uL Retic Count (0.5-2.0) % Creatinine (0.52-1.04) mg/dL Glucose (74-99) mg/dL Iron 12 L (50-170) ug/dL TIBC 501 H (228-460) ug/dL % Saturation 2.31 L (12.00-45.00) Transferrin 358.0 H 368.0 H (204.0-354.0) mg/dL Ferritin 3.5 L (10.0-291.0) ng/mL Total Bilirubin (0.2-1.3) mg/dL Crossmatch See Detail 06/24/22 06/25/22 06/25/22 Range/Units 21:00 07:03 07:03 Hgb 7.4 L (11.4-16.0) gm/dL Hct 26.9 L (34.0-46.0) % MCV 64.6 L (80.0-100.0) fL MCH 17.7 L (25.0-35.0) pg MCHC 27.4 L (31.0-37.0) g/dL RDW 23.2 H (11.5-15.5) % Lymphocytes # (1.0-4.8) k/uL Retic Count 2.6 H (0.5-2.0) % Creatinine 0.51 L (0.52-1.04) mg/dL Glucose 135 H (74-99) mg/dL Iron (50-170) ug/dL TIBC (228-460) ug/dL % Saturation (12.00-45.00) Transferrin (204.0-354.0) mg/dL Ferritin (10.0-291.0) ng/mL Total Bilirubin 1.9 H (0.2-1.3) mg/dL Crossmatch Assessment and Plan (1) Anemia Current Visit: Yes Status: Acute Priority: High Code(s): D64.9 - ANEMIA, UNSPECIFIED SNOMED Code(s): 974353551 Plan: Anemia: -Iron studies consistent with PALOMO. IV iron ordered. Likely due to acute blood loss. Denies noticing blood in stool, melena, and hematuria -Surgery consulted for evaluation for EGD/colonoscopy -Hemoglobin 5.8 upon admission, 1 unit PRBCs given. Hemoglobin 7.4 today -Will have patient f/u outpatient for iron infusions with 4 week f/u to recheck iron studies. Will place appt in discharge plan -Please continue to hold aspirin and no NSAIDs -Please transfuse for hemoglobin less than 7 or if symptomatic attests: I have performed H&P and developed impression and plan of care for patient, discussed with dictator. I agree with dictated note, documented as a scribe
[2022-06-25] MEDS ORDERED: INSULIN ASPART (NovoLOG) 100 UNIT/ML VIAL SQ SCH (17:30)
[2022-06-26] MEDS: LEVOTHYROXINE 125 MCG TAB PO SCH (07:02)
[2022-06-26] MEDS ORDERED: INSULIN ASPART (NovoLOG) 100 UNIT/ML VIAL SQ SCH (07:30)
[2022-06-26] MEDS: ATORVASTATIN 10 MG TAB PO SCH (08:26)
[2022-06-26] MEDS: lisinopriL 20 MG TAB PO SCH (08:26)
[2022-06-26] MEDS: SODIUM FERRIC GLUCONAT-SUCROSE 125 MG in SODIUM CHLORIDE 0.9% 100 ML IVPB SCH (08:27)
[2022-06-26 08:42] LABS: Anisocytosis Moderate; HCT 28.3 % (34.0-46.0); HGB 7.8 gm/dL (11.4-16.0); Hypochromasia Marked; MCHC 27.7 g/dL (31.0-37.0); MCV 64.9 fL (80.0-100.0); Microcytosis Marked; Platelet Count 334 k/uL (150-450); Poikilocytosis Marked; RBC 4.36 m/uL (3.80-5.40); RDW 23.3 % (11.5-15.5); WBC 5.6 k/uL (3.8-10.6)
[2022-06-26 09:54] LABS: Lead, Blood <0.5 ug/dL (<5.0)
[2022-06-26 11:03] VITALS: BP 122/73; PULSE 86; RESP 16; TEMP 99.1
--- NOTE | 2022-06-26 11:45 | P.PN ---
Subjective Progress Note Date: 06/26/22 Principal diagnosis: anemia Upon visit today, pt is resting comfortably in beside chair. Reports feeling well. Denies any episodes of bleeding. Surgery was consulted yesterday for EDG/colonoscopy, but pt had declined scopes. She states that she wants to wait to f/u with Dr. Gomez outpatient, and states she will make f/u with her next week. Objective - Vital Signs Vital signs: Vital Signs Temp 99.1 F 06/26/22 08:20 Pulse 86 06/26/22 08:20 Resp 16 06/26/22 08:20 BP 122/73 06/26/22 08:20 Pulse Ox 98 06/26/22 08:20 FiO2 Intake & Output 06/25/22 06/26/22 06/26/22 18:59 06:59 18:59 Intake Total 118 10 118 Balance 118 10 118 Intake: IV 10 Invasive Line 1 10 Oral 118 118 Other: Voiding Method Toilet Toilet # Voids 3 1 - Constitutional General appearance: Present: average body habitus, no acute distress - EENT Eyes: Present: anicteric sclerae, EOMI ENT: Present: hearing grossly normal - Respiratory Details: breathing is even and unlabored - Cardiovascular Details: skin is warm and dry - Integumentary Integumentary: Present: pale - Neurologic Neurologic Comment(s): grossly intact - Musculoskeletal Musculoskeletal: Present: strength equal bilaterally - Psychiatric Psychiatric: Present: A&O x's 3, appropriate affect, intact judgment & insight - Labs CBC & Chem 7: 06/26/22 07:20 06/25/22 07:03 Labs: Abnormal Lab Results - Last 24 Hours (Table) 06/25/22 06/26/22 Range/Units 07:03 07:20 Hgb 7.8 L (11.4-16.0) gm/dL Hct 28.3 L (34.0-46.0) % MCV 64.9 L (80.0-100.0) fL MCH 18.0 L (25.0-35.0) pg MCHC 27.7 L (31.0-37.0) g/dL RDW 23.3 H (11.5-15.5) % Hemoglobin A1 98.3 H (96.5-97.8) % Hemoglobin A2 1.7 L (2.2-3.2) % Assessment and Plan (1) Anemia Status: Acute Priority: High Code(s): D64.9 - ANEMIA, UNSPECIFIED SNOMED Code(s): 719691811 Plan: Anemia: -Iron studies consistent with PALOMO. IV iron ordered. Likely due to acute blood loss. Denies noticing blood in stool, melena, and hematuria -Surgery consulted for evaluation for EGD/colonoscopy. However, pt declined scopes. She states she wants to f/u with Dr. Gomez outpatient prior to proceeding with scopes. It was stressed the importance of close f/u with Dr. Gomez in regards to EGD/colonoscopy. Pt verbalized understanding -Hemoglobin stable since transfusion. 7.8 today -Will have patient f/u outpatient for iron infusions with 4 week f/u to recheck iron studies. Awaiting prior auth for iron infusions. Will call pt with infusion appt/time -Please continue to hold aspirin and no NSAIDs -Please transfuse for hemoglobin less than 7 or if symptomatic *Pt is cleared from a hem/onc standpoint, once cleared by IM and other consulted medical specialties attests: I have performed H&P and developed impression and plan of care for patient, discussed with dictator. I agree with dictated note, documented as a sc ribe
--- NOTE | 2022-06-26 14:41 | P.DS ---
Providers Date of admission: 06/24/22 22:16 Expected date of discharge: 06/26/22 Attending physician: Mary Grace Rdz MD Consults: 06/24/22 22:10 Consult Physician Urgent Consulting Provider: Jose Angel Caceres Consult Reason/Comments: new anemia Do you want consulting provider notified?: Yes 06/25/22 10:45 Consult Physician Routine Consulting Provider: Jose Rodas Consult Reason/Comments: PALOMO, r/o GI bleed, eval for colonoscopy/EGD Do you want consulting provider notified?: Yes Primary care physician: Peewee Campa MD Hospital Course: The patient is a 66-year-old female with a PMH of type II DM, hypothyroidism, hypertension, and hyperlipidemia who was sent to the emergency room by her PCP for abnormal blood work. The patient states that she had undergone routine Medicare blood work earlier today and was called by her PCP to inform her that her hemoglobin was 5.8. The patient denies any prior history of anemia. Denies noticing any blood or black tarry material in her stools. Denies experiencing vaginal bleeding. Denies any family history of thalassemia or blood dyscrasias. States she underwent a colonoscopy 2 years ago which was completely unremarkable. Denies experiencing fatigue, weakness, numbness, tingling. Reports unchanged exercise tolerance. Vital signs upon presentation at the emergency room her BP 173/63, pulse 110, respiratory rate 20, temp 98F, and SpO2 99% on room air. Laboratory evaluation was remarkable for hemoglobin of 6.0 with MCV 59.9. Prior CBC for comparison was from 2017 with MCV 76.5 and hemoglobin 13.2. Patient was transfused 1 unit PRBC. Repeat hemoglobin was 7.4. Iron studies showed iron of 12, TIBC of 501, percent saturation 2.31, ferritin of 3.5. Stool for occult blood was negative. She was started on ferrous gluconate 125 mg IV daily. Hemoglobin on 06/26 was 7.8. General surgery was consulted and recommended EGD and colonoscopy which patient was refusing. Patient was seen and examined this morning. No acute events overnight. Patient reports no complaints. Wanting to go home. General: non toxic, no distress, appears at stated age Derm: warm, dry Head: atraumatic, normocephalic, symmetric Eyes: EOMI, no lid lag, anicteric sclera Mouth: no lip lesion, mucus membranes moist Cardiovascular: S1S2 reg, no murmur Lungs: CTA bilateral, no rhonchi, no rales , no accessory muscle use Ext: no gross muscle atrophy, no edema, no contractures Neuro: no focal neuro deficits Psych: Alert, oriented, appropriate affect Discharge diagnosis: #Severe microcytic anemia Chronic conditions: Type II DM, hypertension, hyperlipidemia, hypothyroidism This complex discharge took 35 minutes to complete. Patient Condition at Discharge: Stable Plan - Discharge Summary Discharge Rx Participant: Yes New Discharge Prescriptions: New Ferrous Sulfate [Iron (65 MG Elemental)] 325 mg PO BID #60 tab Continue Benazepril HCl [Lotensin] 40 mg PO DAILY ALPRAZolam [Xanax] 0.125 - 0.25 mg PO DAILY PRN PRN Reason: Anxiety Simvastatin [Zocor] 20 mg PO DAILY L.acidoph,Paracasei, B.lactis [Probiotic] 1 cap PO DAILY Insulin Aspart [NovoLOG Flexpen] 8 units SQ BID-W/MEALS Insulin Aspart [NovoLOG Flexpen] 10 units SQ W/SUPPER Equate Allergy Relief 10mg 10 mg PO DAILY Levothyroxine Sodium [Synthroid] 125 mcg PO DAILY Insulin Glargine,Hum.rec.anlog [Lantus Solostar Pen] 46 units SQ HS Glimepiride [Amaryl] 6 mg PO DAILY Dulaglutide [Trulicity] 1.5 mg SQ Q14D metFORMIN HCL ER [Glucophage XR] 1,000 mg PO BID Discontinued Aspirin [Adult Low Dose Aspirin EC] 81 mg PO DAILY Nystatin 100,000Unit/gm Cream [Mycostatin Cream] 1 applic TOPICAL TID PRN PRN Reason: Rash Discharge Medication List Benazepril HCl [Lotensin] 40 mg PO DAILY 07/16/15 [History] ALPRAZolam [Xanax] 0.125 - 0.25 mg PO DAILY PRN 06/24/22 [History] Dulaglutide [Trulicity] 1.5 mg SQ Q14D 06/24/22 [History] Equate Allergy Relief 10mg 10 mg PO DAILY 06/24/22 [History] Glimepiride [Amaryl] 6 mg PO DAILY 06/24/22 [History] Insulin Aspart [NovoLOG Flexpen] 8 units SQ BID-W/MEALS 06/24/22 [History] Insulin Aspart [NovoLOG Flexpen] 10 units SQ W/SUPPER 06/24/22 [History] Insulin Glargine,Hum.rec.anlog [Lantus Solostar Pen] 46 units SQ HS 06/24/22 [History] L.acidoph,Paracasei, B.lactis [Probiotic] 1 cap PO DAILY 06/24/22 [History] Levothyroxine Sodium [Synthroid] 125 mcg PO DAILY 06/24/22 [History] Simvastatin [Zocor] 20 mg PO DAILY 06/24/22 [History] metFORMIN HCL ER [Glucophage XR] 1,000 mg PO BID 06/24/22 [History] Ferrous Sulfate [Iron (65 MG Elemental)] 325 mg PO BID #60 tab 06/26/22 [Rx] Follow up Appointment(s)/Referral(s): Jose Angel Caceres MD [STAFF PHYSICIAN] - 1 Week (Blood doctor. The office will call you to schedule infusions and follow up. ) Peewee Campa MD [Primary Care Provider] - 07/01/22 1:00 pm Jyoti Gomez MD [STAFF PHYSICIAN] - 08/18/22 4:30 pm (You are on a cancellation list, the office will call with a sooner appointment. ) Patient Instructions/Handouts: Anemia (DC) Discharge Disposition: HOME SELF-CARE
[2022-06-27 07:48] LABS: Zinc, Serum 55 ug/dL (60-130)
[2022-06-28 19:38] LABS: LD Isoenzymes 1 23 % (19-38); LD Isoenzymes 2 32 % (30-43); LD Isoenzymes 3 25 % (16-26); LD Isoenzymes 4 11 % (3-12); LD Isoenzymes 5 9 % (3-14); Lactacte Dehydrogenase(LD) ISO 201 U/L (120-250)
== END 2022-06-26 11:22 | disposition home or self-care (01) ==
LOC: EC 20:10 → 3SCARD 22:16
PROVIDERS: ADMIT Internal Medicine; ATTEND Internal Medicine
DX: D50.9 Iron deficiency anemia, unspecified (principal); E11.9 Type 2 diabetes mellitus without complications; I10 Essential (primary) hypertension; E78.5 Hyperlipidemia, unspecified; E03.9 Hypothyroidism, unspecified; Z82.49 Family history of ischemic heart disease and other diseases of the circulatory system; Z79.82 Long term (current) use of aspirin; Z79.84 Long term (current) use of oral hypoglycemic drugs; Z79.4 Long term (current) use of insulin; Z79.890 Hormone replacement therapy; Z79.899 Other long term (current) drug therapy; Z88.1 Allergy status to other antibiotic agents; Z88.0 Allergy status to penicillin
CPT/HCPCS: 36430; 96365; 99285; 36415; 86900; 86901; 80053 ×2; 82728; 83021; 83540; 83550; 83625; 83655; 84630; 85025 ×2; 85027; 85045; 86850; 86920; 82272; 84466; 83010; G0378 ×3; P9016; J2916 ×2

== ENCOUNTER → 2022-07-09 | Outpatient (CLI) | payer MEDICARE ==
[2022-07-09 11:42] LABS: Anisocytosis Marked; Basophils # (A) 0.1 k/uL (0-0.2); Basophils % (A) 1 %; Eosinophils # (A) 0.2 k/uL (0-0.7); Eosinophils % (A) 4 %; HCT 34.7 % (34.0-46.0); Hypochromasia Marked; Lymphocytes # (A) 0.9 k/uL (1.0-4.8); Lymphocytes % (A) 17 %; MCH 20.6 pg (25.0-35.0); MCHC 27.6 g/dL (31.0-37.0); MCV 74.8 fL (80.0-100.0); Mean Platelet Volume 7.7; Microcytosis Marked; Monocytes # (A) 0.4 k/uL (0-1.0); Monocytes % (A) 7 %; Neutrophils # (A) 3.6 k/uL (1.3-7.7); Neutrophils % (A) 68 %; Platelet Count 288 k/uL (150-450); Poikilocytosis Moderate; RBC 4.63 m/uL (3.80-5.40); WBC 5.4 k/uL (3.8-10.6)
[2022-07-09 11:49] LABS: HGB 9.6 gm/dL (11.4-16.0); RDW 28.2 % (11.5-15.5)
[2022-07-09 12:53] LABS: Mixed Population RBC Present
== END | disposition home or self-care (01) ==
LOC: LABWHC1 10:26
PROVIDERS: ATTEND Internal Medicine
DX: D50.9 Iron deficiency anemia, unspecified (principal)
CPT/HCPCS: 36415; 85025; 86334

== ENCOUNTER → 2022-11-18 | Outpatient (CLI) | payer MEDICARE ==
--- NOTE | 2022-11-19 23:26 | MM ---
Reason for Exam: Screening (asymptomatic). Last mammogram was performed 1 year(s) and 2 month(s) ago. Patient History: Menarche at age 10. First Full-Term at age 22. Postmenopausal. Risk Values: Charlotte 5 year model risk: 1.7%. NCI Lifetime model risk: 5.7%. Prior Study Comparison: 12/22/2018 Bilateral Screening Mammogram, [facility]. 01/13/2020 Bilateral Screening Mammogram, [facility]. 09/17/2021 Bilateral MG 3D screening mammo w/cad, [facility]. Tissue Density: There are scattered fibroglandular densities. Findings: Analyzed By CAD. Benign bilateral secretory and vascular calcifications are redemonstrated. There is no suspicious group of microcalcifications or new suspicious mass in either breast. Overall Assessment: Benign, BI-RAD 2 Management: Screening Mammogram of both breasts in 1 year. . Patient should continue monthly self-breast exams. A clinical breast exam by your physician is recommended on an annual basis. This exam should not preclude additional follow-up of suspicious palpable abnormalities. Note on Charlotte scores and lifetime risk: 1. A Charlotte score greater than 3% is considered moderate risk. If this is the case, consider specialist referral to assess eligibility for a risk reducing agent. 2. If overall lifetime risk for the development of breast cancer is 20% or higher, the patient may qualify for future screening with alternating mammogram and breast MRI. Electronically signed and approved by: Dorita Marion M.D. Radiologist
== END | disposition home or self-care (01) ==
LOC: RADMAMWWP 08:41
PROVIDERS: ATTEND Internal Medicine
DX: Z12.31 Encounter for screening mammogram for malignant neoplasm of breast (principal); Z78.0 Asymptomatic menopausal state
CPT/HCPCS: 77063; 77067

== ENCOUNTER → 2022-12-22 | Outpatient (CLI) | payer MEDICARE ==
[2022-12-22 10:59] LABS: Basophils # (A) 0.09 X 10*3/uL (0.00-0.10); Basophils % (A) 1.3 %; Eosinophils # (A) 0.14 X 10*3/uL (0.04-0.35); Eosinophils % (A) 2.1 %; HCT 45.1 % (37.2-46.3); HGB 14.9 d/dL (12.0-15.0); Lymphocytes # (A) 1.06 X 10*3/uL (0.90-5.00); Lymphocytes % (A) 15.7 %; MCH 30.6 pg (27.0-32.0); MCV 92.6 FL (80.0-97.0); Mean Platelet Volume 10.8 FL (9.5-12.2); Monocytes # (A) 0.58 X 10*3/uL (0.20-1.00); Monocytes % (A) 8.6 %; NRBC Per 100 WBC 0 X 10*3/uL (0.00-0.01); Neutrophils # (A) 4.85 X 10*3/uL (1.80-7.70); Neutrophils % (A) 71.7 %; Platelet Count 127 X 10*3/uL (140-440); RBC 4.87 X 10*6/uL (4.10-5.20); RDW 13.1 % (11.5-14.5); WBC 6.76 X 10*3/uL (4.50-10.00)
[2022-12-22 11:13] LABS: Microalbumin Creatinine Ratio <9 mg/g Cr (0-30)
[2022-12-22 11:28] LABS: % Iron Saturation 29.18 (12.00-45.00); ALT 28 U/L (8-44); AST 29 U/L (13-35); Albumin 4.6 d/dL (3.8-4.9); Albumin/Globulin Ratio 1.53 Ratio (1.60-3.17); Alkaline Phosphatase 96 U/L (41-126); BUN/Creat Ratio 15.25 Ratio (12.00-20.00); Blood Urea Nitrogen 12.2 mg/dL (9.0-27.0); Calcium 9.2 mg/dL (8.7-10.3); Carbon Dioxide 25.3 mmol/L (21.6-31.8); Chloride 101 mmol/L (96-109); Chol/HDL Ratio 3.17 Ratio; Glucose 176 mg/dL (70-110); Iron 82 UG/DL (50-170); LDL Cholesterol,Calculated 79.4 mg/dL (0.0-131.0); Potassium 3.9 mmol/L (3.5-5.5); Sodium 141 mmol/L (135-145); Total Bilirubin 0.5 mg/dL (0.3-1.2); Total Iron Binding Capacity 281 UG/DL (228-460); Total Protein 7.6 d/dL (6.2-8.2)
== END | disposition home or self-care (01) ==
LOC: LABWHC1 07:49
PROVIDERS: ATTEND Internal Medicine Endocrinology, Diabetes & Metabolism
DX: E53.8 Deficiency of other specified B group vitamins (principal); E03.9 Hypothyroidism, unspecified; E11.65 Type 2 diabetes mellitus with hyperglycemia; M85.80 Other specified disorders of bone density and structure, unspecified site
CPT/HCPCS: 36415; 80053; 80061; 82043; 82306; 82570; 82607; 82746; 83036; 83540; 83550; 84439; 84443; 85025

== ENCOUNTER → 2023-04-01 | Outpatient (CLI) | payer MEDICARE ==
[2023-04-01 15:16] LABS: BUN/Creat Ratio 14.67 Ratio (12.00-20.00); Blood Urea Nitrogen 13.2 mg/dL (9.0-27.0); Calcium 10.3 mg/dL (8.7-10.3); Carbon Dioxide 24.2 mmol/L (21.6-31.8); Chloride 98 mmol/L (96-109); Glucose 300 mg/dL (70-110); Potassium 4.4 mmol/L (3.5-5.5); Sodium 139 mmol/L (135-145)
== END | disposition home or self-care (01) ==
LOC: LABWHC1 09:44
PROVIDERS: ATTEND Internal Medicine
DX: I10 Essential (primary) hypertension (principal)
CPT/HCPCS: 36415; 80048

== ENCOUNTER → 2023-05-02 | Outpatient (CLI) | payer MEDICARE ==
[2023-05-02 16:21] LABS: ALT 24 U/L (8-44); AST 22 U/L (13-35); Albumin 4.6 g/dL (3.8-4.9); Albumin/Globulin Ratio 1.35 Ratio (1.60-3.17); Alkaline Phosphatase 83 U/L (41-126); BUN/Creat Ratio 18.89 Ratio (12.00-20.00); Calcium 9.7 mg/dL (8.7-10.3); Carbon Dioxide 22.8 mmol/L (21.6-31.8); Chloride 97 mmol/L (96-109); Chol/HDL Ratio 4.06 Ratio; Globulin 3.4 g/dL (1.6-3.3); Glucose 295 mg/dL (70-110); LDL Cholesterol,Calculated 76.1 mg/dL (0.0-131.0); Potassium 4.2 mmol/L (3.5-5.5); Sodium 135 mmol/L (135-145); Total Bilirubin 0.7 mg/dL (0.3-1.2)
[2023-05-02 22:14] LABS: Microalbumin Creatinine Ratio <12 mg/g Cr (0-30)
== END | disposition home or self-care (01) ==
LOC: LABWHC1 09:02
PROVIDERS: ATTEND Internal Medicine Endocrinology, Diabetes & Metabolism
DX: E11.65 Type 2 diabetes mellitus with hyperglycemia (principal)
CPT/HCPCS: 36415; 80053; 80061; 82043; 82570; 83036; 84443

== ENCOUNTER 2023-05-08 09:16 | Day surgery (SDC) | payer MEDICARE ==
[2023-03-18 13:53] VITALS: BMI 36.1
[~2023-05-08 09:16] MED LIST: LIDOCAINE 1% (10MG/ML) FOR IV START INTRADERMA PRN
[2023-05-08] MEDS: LACTATED RINGERS 1,000 ML IV SCH ×2 (09:30→11:19)
[2023-05-08] MEDS ORDERED: ONDANSETRON 4 MG/2 ML VIAL ONE (09:32)
[2023-05-08 10:27] VITALS: TEMP 98.7
[2023-05-08 10:34] LABS: Glucose,Whole Blood 217 mg/dL (70-110)
[2023-05-08] MEDS ORDERED: PROPOFOL 10 MG/ML 20 ML VIAL IV ONE (11:23)
--- NOTE | 2023-05-08 11:43 | P.PCN ---
Date of Procedure: 05/08/23 Procedure(s) Performed: BRIEF HISTORY: Patient is a 67-year-old, pleasant, \white female scheduled for an upper endoscopy as a part of gastric polyp noted on upper endoscopy in December 2022. Biopsies of gastric polyp revealed hyperplastic polyp. She is scheduled for an upper endoscopy for endoscopy polypectomy. PROCEDURE PERFORMED: Esophagogastroduodenoscopy and snare polypectomy. PREOPERATIVE DIAGNOSIS: Follow-up large gastric polyps. IV sedation per anesthesia. PROCEDURE: After informed consent was obtained, the patient was brought into the endoscopy unit. IV sedation was administered by Anesthesia under continuous monitoring. Initially the Olympus GIF-140 video endoscope was inserted into the mouth. Esophagus intubated without any difficulty. It was gradually advanced into the stomach and duodenum and carefully examined. The bulb and the second part of the duodenum appeared normal. The scope at this time was withdrawn to the stomach, adequately insufflated with air, and upon careful examination, mucosa of the antrum, had a 1.5 cm prepyloric polyp identified. At this time using a snare piecemeal polypectomy was performed with good hemostasis. There was large amount of solid food noted in the body of stomach. The visualized portions of the body, cardia s appeared normal. The scope was then withdrawn into the esophagus. The GE junction was located at 39 cm from the incisors. The esophagus appeared normal. There were no erosions or ulcerations seen and the patient tolerated the procedure well. IMPRESSION: 1. 1.5 cm gastric polyp in the prepyloric area status post piecemeal snare polypectomy and complete polypectomy accomplished. 2. Retained food in the stomach suggestive of gastroparesis. RECOMMENDATIONS: The findings of this examination were discussed with the patient as well as a family. She was advised to follow with the biopsy results. Based on the biopsy results will plan a repeat upper endoscopy in 1 year.
[2023-05-08 11:58] LABS: Glucose,Whole Blood 185 mg/dL (70-110)
[2023-05-08 12:13] VITALS: BP 117/77; PULSE 80; RESP 20
== END 2023-05-08 12:20 | disposition home or self-care (01) ==
LOC: ORWHC2ENDO 09:16
PROVIDERS: ATTEND Internal Medicine Gastroenterology
DX: K31.7 Polyp of stomach and duodenum (principal); I10 Essential (primary) hypertension; E78.5 Hyperlipidemia, unspecified; E03.9 Hypothyroidism, unspecified; E11.9 Type 2 diabetes mellitus without complications; Z79.890 Hormone replacement therapy; Z79.84 Long term (current) use of oral hypoglycemic drugs; Z79.4 Long term (current) use of insulin; Z79.85 Long-term (current) use of injectable non-insulin antidiabetic drugs; Z79.899 Other long term (current) drug therapy; Z88.0 Allergy status to penicillin; Z88.1 Allergy status to other antibiotic agents
CPT/HCPCS: 43251; J2405; J2704; 88305

== ENCOUNTER → 2023-06-17 | Outpatient (CLI) | payer MEDICARE ==
[2023-06-17 18:05] LABS: Basophils % (A) 1.5 %; Eosinophils # (A) 0.19 X 10*3/uL (0.04-0.35); Eosinophils % (A) 2.9 %; HCT 41.7 % (37.2-46.3); HGB 14.5 g/dL (12.0-15.0); Immature Platelet Fraction 13.6 % (1.1-6.1); Lymphocytes # (A) 1.22 X 10*3/uL (0.90-5.00); Lymphocytes % (A) 18.5 %; MCHC 34.8 g/dL (32.0-37.0); MCV 89.1 FL (80.0-97.0); Mean Platelet Volume 11.5 FL (9.5-12.2); Monocytes # (A) 0.67 X 10*3/uL (0.20-1.00); Monocytes % (A) 10.1 %; NRBC Per 100 WBC 0 X 10*3/uL (0.00-0.01); Neutrophils # (A) 4.39 X 10*3/uL (1.80-7.70); Neutrophils % (A) 66.4 %; RBC 4.68 X 10*6/uL (4.10-5.20); RDW 12.2 % (11.5-14.5); WBC 6.61 X 10*3/uL (4.50-10.00)
[2023-06-17 18:12] LABS: % Iron Saturation 28.33 (12.00-45.00); Blood Urea Nitrogen 14.7 mg/dL (9.0-27.0); Calcium 10.2 mg/dL (8.7-10.3); Carbon Dioxide 26.6 mmol/L (21.6-31.8); Chloride 98 mmol/L (96-109); Glucose 184 mg/dL (70-110); Iron 85 UG/DL (50-170); Magnesium 1.8 mg/dL (1.5-2.4); Potassium 3.4 mmol/L (3.5-5.5); Sodium 141 mmol/L (135-145); Total Iron Binding Capacity 300 UG/DL (228-460)
== END | disposition home or self-care (01) ==
LOC: LABWHC1 10:34
PROVIDERS: ATTEND Internal Medicine
DX: I10 Essential (primary) hypertension (principal); D50.9 Iron deficiency anemia, unspecified
CPT/HCPCS: 36415; 80048; 82607; 82746; 83540; 83550; 83735; 85025

== ENCOUNTER → 2023-08-01 | Outpatient (CLI) | payer MEDICARE ==
[2023-08-01 14:53] LABS: ALT 28 U/L (8-44); AST 27 U/L (13-35); Albumin 4.6 g/dL (3.8-4.9); Albumin/Globulin Ratio 1.35 Ratio (1.60-3.17); Alkaline Phosphatase 78 U/L (41-126); Calcium 10.2 mg/dL (8.7-10.3); Carbon Dioxide 23.4 mmol/L (21.6-31.8); Chloride 99 mmol/L (96-109); Chol/HDL Ratio 3.67 Ratio; Globulin 3.4 g/dL (1.6-3.3); Glucose 224 mg/dL (70-110); LDL Cholesterol,Calculated 95.5 mg/dL (0.0-131.0); Magnesium 1.9 mg/dL (1.5-2.4); Potassium 4.3 mmol/L (3.5-5.5); Sodium 139 mmol/L (135-145); Total Bilirubin 0.6 mg/dL (0.3-1.2)
[2023-08-01 18:43] LABS: Microalbumin Creatinine Ratio <22 mg/g Cr (0-30); Urine Creatinine 54.8 mg/dL (28.0-217.0)
== END | disposition home or self-care (01) ==
LOC: LABWHC1 08:42
PROVIDERS: ATTEND Internal Medicine Endocrinology, Diabetes & Metabolism
DX: E11.65 Type 2 diabetes mellitus with hyperglycemia (principal); I10 Essential (primary) hypertension
CPT/HCPCS: 36415; 80053; 80061; 82043; 82570; 83036; 83735; 84443

== ENCOUNTER → 2023-08-18 | Outpatient (CLI) | payer MEDICARE ==
--- NOTE | 2023-08-18 15:18 | CT ---
EXAMINATION TYPE: CT brain wo con CT DLP: 1075.5 mGycm, Automated exposure control for dose reduction was used. DATE OF EXAM: 08/18/2023 3:07 PM COMPARISON: None. CLINICAL INDICATION:Female, 67 years old with history of H93.19 TINNITUS, UNSPECIFIED EAR, worsening tinnitus TECHNIQUE: Brain: Axial CT images of the brain were obtained with coronal and sagittal reformats created and rev iewed. Contrast used: None. Oral contrast used: None. FINDINGS: Brain: Extra-axial spaces: No abnormal extra-axial fluid collections. Ventricular system: Dilatation in proportion to cerebral atrophy. Cerebral parenchyma: Cerebral atrophy. No acute intraparenchymal hemorrhage or mass effect. The hidalgo -white junction is well differentiated. Scattered hypoattenuating areas are seen within the white mat ter. Cerebellum: Unremarkable. Mass effect: No evidence of midline shift. Intracranial vasculature: unremarkable Soft tissues: Normal. Calvarium/osseous structures: No depressed skull fracture. Paranasal sinuses and mastoid air cells: Mild scattered paranasal sinus disease. Moderate mucosal thi ckening of the right anterior ethmoid air cells the right maxillary sinus and right frontal sinus. Th e temporal bones are relatively unremarkable. No mastoid air cell effusion or middle ear effusion lan ntified. Visualized orbits: Orbital contents are intact. IMPRESSION: 1. No acute intracranial process. 2. Moderate to severe right paranasal sinus disease involving the right frontal right ethmoid air ce lls and right maxillary sinus..
== END | disposition home or self-care (01) ==
LOC: RADCTMAIN 14:43
PROVIDERS: ATTEND Internal Medicine
DX: H93.19 Tinnitus, unspecified ear (principal); J34.89 Other specified disorders of nose and nasal sinuses
CPT/HCPCS: 70450

== ENCOUNTER → 2023-10-31 | Outpatient (CLI) | payer MEDICARE ==
[2023-10-31 12:55] LABS: Basophils # (A) 0.07 X 10*3/uL (0.00-0.10); Basophils % (A) 1.1 %; Eosinophils # (A) 0.17 X 10*3/uL (0.04-0.35); Eosinophils % (A) 2.6 %; HCT 40.7 % (37.2-46.3); HGB 13.9 g/dL (12.0-15.0); Lymphocytes # (A) 1.05 X 10*3/uL (0.90-5.00); Lymphocytes % (A) 16.1 %; MCH 30.8 pg (27.0-32.0); MCHC 34.2 g/dL (32.0-37.0); Mean Platelet Volume 9.8 FL (9.5-12.2); Monocytes # (A) 0.55 X 10*3/uL (0.20-1.00); Monocytes % (A) 8.4 %; NRBC Per 100 WBC 0 X 10*3/uL (0.00-0.01); Neutrophils # (A) 4.67 X 10*3/uL (1.80-7.70); Neutrophils % (A) 71.3 %; Platelet Count 203 X 10*3/uL (140-440); RBC 4.52 X 10*6/uL (4.10-5.20); RDW 12.4 % (11.5-14.5); WBC 6.54 X 10*3/uL (4.50-10.00)
[2023-11-01 08:50] LABS: % Iron Saturation 23.84 (12.00-45.00)
== END | disposition home or self-care (01) ==
LOC: LABWHC1 09:32
PROVIDERS: ATTEND Internal Medicine Hematology & Oncology
DX: I10 Essential (primary) hypertension (principal); E11.9 Type 2 diabetes mellitus without complications; M12.9 Arthropathy, unspecified; D50.9 Iron deficiency anemia, unspecified
CPT/HCPCS: 36415; 82607; 82728; 83540; 83550; 83921; 85025

== ENCOUNTER → 2023-12-19 | Outpatient (CLI) | payer MEDICARE ==
--- NOTE | 2023-12-19 11:05 | XR ---
EXAMINATION TYPE: XR foot complete RT DATE OF EXAM: 12/19/2023 10:41 AM CLINICAL INDICATION: Female, 68 years old with history of M72.2 RT FOOT; H COMPARISON: None TECHNIQUE: XR foot complete RT examined in the AP, oblique, and lateral projections. FINDINGS/IMPRESSION: 1. Soft tissue swelling over the dorsal forefoot without evidence of fracture. No evidence for osseo us erosion. 2. Mild multifocal degeneration changes throughout the joints of the foot.
== END | disposition home or self-care (01) ==
LOC: RADXRMAIN 10:20
PROVIDERS: ATTEND Internal Medicine
DX: M72.2 Plantar fascial fibromatosis

== ENCOUNTER → 2023-12-26 | Outpatient (CLI) | payer MEDICARE ==
[2023-12-26 13:08] LABS: Microalbumin Creatinine Ratio <12 mg/g Cr (0-30); Urine Creatinine 96.3 mg/dL (28.0-217.0)
[2023-12-26 13:14] LABS: ALT 26 U/L (8-44); AST 29 U/L (13-35); Albumin 4.5 g/dL (3.8-4.9); Albumin/Globulin Ratio 1.36 Ratio (1.60-3.17); Alkaline Phosphatase 72 U/L (41-126); BUN/Creat Ratio 21.89 Ratio (12.00-20.00); Blood Urea Nitrogen 19.7 mg/dL (9.0-27.0); Calcium 9.8 mg/dL (8.7-10.3); Carbon Dioxide 23.1 mmol/L (21.6-31.8); Chloride 102 mmol/L (96-109); Chol/HDL Ratio 3.88 Ratio; Globulin 3.3 g/dL (1.6-3.3); Glucose 234 mg/dL (70-110); LDL Cholesterol,Calculated 87.8 mg/dL (0.0-131.0); Potassium 4.4 mmol/L (3.5-5.5); Sodium 139 mmol/L (135-145); Total Bilirubin 0.8 mg/dL (0.3-1.2); Total Protein 7.8 g/dL (6.2-8.2)
== END | disposition home or self-care (01) ==
LOC: LABWHC1 09:11
PROVIDERS: ATTEND Internal Medicine Endocrinology, Diabetes & Metabolism
DX: E11.65 Type 2 diabetes mellitus with hyperglycemia (principal)
CPT/HCPCS: 36415; 80053; 80061; 82043; 82570; 83036; 84443

== ENCOUNTER → 2024-02-01 | Outpatient (CLI) | payer MEDICARE ==
--- NOTE | 2024-02-01 16:21 | BD ---
EXAMINATION TYPE: Axial Bone Density DATE OF EXAM: 02/01/2024 CLINICAL HISTORY: 68 years old Female. ICD-10 CODE: Z78.0 ASYMP [place] Height: 59.5 Weight: 186.3 FRAX RISK QUESTIONS: Alcohol (3 or more units per day): no Family History (Parent hip fracture): no Glucocorticoids (More than 3mos): no (Ex: prednisone, prednisolone, methylprednisolone, dexamethasone, and hydrocortisone). History of Fracture in Adulthood: no Secondary Osteoporosis: 1. Type 1 Diabetes: no 2. Hyperthyroidism: no 3. Menopause before 45: no 4. Malnutrition: no 5. Chronic liver disease: no Rheumatoid Arthritis: no Current Tobacco Use: no RISK FACTORS HISTORY OF: Hip Fracture (Right/Left): no Spine Fracture: no History of Wrist Fracture: Lt Wrist When: age 9 Surgery to Spine/Hip(right/left)/Wrist (right/left): no MEDICATIONS: Thyroid Medications: Synthroid How Long: past 44 years Osteoporosis Medications: no EXAM MEASUREMENTS: Bone mineral densitometry was performed using the [employer] System. Bone mineral density as measured about the Lumbar spine is: ----- L1-L4(G/cm2): 1.358 T Score Values are as follows: ----- L1: 0.4 ----- L2: -1.2 ----- L3: 2.5 ----- L4: 3.8 ----- L1-L4: 1.5 Z Score Values are as follows: ----- L1: 1.4 ----- L2: -0.2 ----- L3: 3.5 ----- L4: 4.8 ----- L1-L4: 2.5 Bone mineral density has: INCREASED 10.4 % since study of: 09/17/2021 Bone mineral density about the R hip (g/cm2): 1.016 Bone mineral density about the L hip (g/cm2): 1.000 T Score values are as follows: -----R Neck: -1.0 -----L Neck: -1.6 -----R Total: 0.1 -----L Total: -0. Z Score values are as follows: -----R Neck: 0.2 -----L Neck: -0.4 -----R Total: 1.0 -----L Total: 0.9 Bone mineral density has: increased 1.5 % since study of: 09/17/2021 FRAX%s: The graph provided illustrates a 9.2% chance for a major osteoporotic fx and a 1.3% chance fo r the hips probability for fx in 10 years time. IMPRESSION: Osteopenia (T Score between -2.5 and -1). There is slightly increased risk of fracture and the patient may be considered for treatment. Re-Screen 2-5 years. NOTE: T-SCORE=SD OF THE YOUNG ADULT MEAN. [facility], , 02/01/2024 4:18 PM
--- NOTE | 2024-02-02 09:28 | MM ---
Reason for Exam: Screening (asymptomatic). Last mammogram was performed 1 year(s) and 2 month(s) ago. Patient History: Menarche at age 10. First Full-Term at age 22. Postmenopausal. Risk Values: Charlotte 5 year model risk: 1.7%. NCI Lifetime model risk: 5.2%. Prior Study Comparison: 01/13/2020 Bilateral Screening Mammogram, [facility]. 09/17/2021 Bilateral MG 3D screening mammo w/cad, [facility]. 11/18/2022 Bilateral MG 3D screening mammo w/cad, [facility]. Tissue Density: There are scattered areas of fibroglandular density. Findings: Analyzed By CAD. There is no suspicious group of microcalcifications or new suspicious mass in either breast. Overall Assessment: Benign, BI-RAD 2 Management: Screening Mammogram of both breasts in 1 year. . Patient should continue monthly self-breast exams. A clinical breast exam by your physician is recommended on an annual basis. This exam should not preclude additional follow-up of suspicious palpable abnormalities. Note on Charlotte scores and lifetime risk: 1. A Charlotte score greater than 3% is considered moderate risk. If this is the case, consider specialist referral to assess eligibility for a risk reducing agent. 2. If overall lifetime risk for the development of breast cancer is 20% or higher, the patient may qualify for future screening with alternating mammogram and breast MRI. [facility], , 02/02/2024 9:25 AM. Electronically signed and approved by: Efrem Glaser M.D. Radiologis
== END | disposition home or self-care (01) ==
LOC: RADMAMWWP 10:11
PROVIDERS: ATTEND Internal Medicine
DX: Z12.31 Encounter for screening mammogram for malignant neoplasm of breast (principal); R92.323 Mammographic fibroglandular density, bilateral breasts; M85.89 Other specified disorders of bone density and structure, multiple sites; Z78.0 Asymptomatic menopausal state
CPT/HCPCS: 77063; 77067; 77080

== ENCOUNTER → 2024-04-12 | Outpatient (CLI) | payer MEDICARE ==
[2024-04-12 15:18] LABS: ALT 32 U/L (8-44); AST 27 U/L (13-35); Albumin 4.4 g/dL (3.8-4.9); Albumin/Globulin Ratio 1.22 Ratio (1.60-3.17); Alkaline Phosphatase 77 U/L (41-126); BUN/Creat Ratio 19.78 Ratio (12.00-20.00); Blood Urea Nitrogen 17.8 mg/dL (9.0-27.0); Calcium 9.7 mg/dL (8.7-10.3); Carbon Dioxide 22.9 mmol/L (21.6-31.8); Chloride 98 mmol/L (96-109); Chol/HDL Ratio 4.12 Ratio; Globulin 3.6 g/dL (1.6-3.3); Glucose 248 mg/dL (70-110); LDL Cholesterol,Calculated 91.2 mg/dL (0.0-131.0); Potassium 4.2 mmol/L (3.5-5.5); Sodium 136 mmol/L (135-145); Total Bilirubin 0.6 mg/dL (0.3-1.2)
[2024-04-12 19:36] LABS: Microalbumin Creatinine Ratio <13 mg/g Cr (0-30); Urine Creatinine 89.7 mg/dL (28.0-217.0)
== END | disposition home or self-care (01) ==
LOC: LABWHC1 09:31
PROVIDERS: ATTEND Internal Medicine Endocrinology, Diabetes & Metabolism
DX: E11.65 Type 2 diabetes mellitus with hyperglycemia (principal)
CPT/HCPCS: 36415; 80053; 80061; 82043; 82570; 83036; 84443

== ENCOUNTER → 2024-06-28 | Outpatient (CLI) | payer MEDICARE ==
[2024-06-28 23:39] LABS: Cyclic Citrull Pep IgG Unit <1.5 U/mL (<=3.9); Cyclic Citrullinated Pep IgG Negative
== END | disposition home or self-care (01) ==
LOC: LABWHC1 14:41
PROVIDERS: ATTEND Internal Medicine
DX: M19.049 Primary osteoarthritis, unspecified hand (principal)
CPT/HCPCS: 36415; 86038; 86200; 86431

== ENCOUNTER → 2024-08-04 | Outpatient (CLI) | payer MEDICARE ==
[2024-08-04 10:48] LABS: Microalbumin Creatinine Ratio <15 mg/g Cr (0-30); Urine Creatinine 77.9 mg/dL (28.0-217.0)
[2024-08-04 15:45] LABS: ALT 29 U/L (8-44); AST 33 U/L (13-35); Albumin 4.3 g/dL (3.8-4.9); Albumin/Globulin Ratio 1.23 Ratio (1.60-3.17); Alkaline Phosphatase 75 U/L (41-126); BUN/Creat Ratio 20.11 Ratio (12.00-20.00); Blood Urea Nitrogen 18.1 mg/dL (9.0-27.0); Calcium 9.6 mg/dL (8.7-10.3); Carbon Dioxide 21.5 mmol/L (21.6-31.8); Chloride 101 mmol/L (96-109); Chol/HDL Ratio 3.62 Ratio; Globulin 3.5 g/dL (1.6-3.3); Glucose 196 mg/dL (70-110); LDL Cholesterol,Calculated 76.9 mg/dL (0.0-131.0); Potassium 4.4 mmol/L (3.5-5.5); Sodium 140 mmol/L (135-145); Total Bilirubin 0.5 mg/dL (0.3-1.2); Total Protein 7.8 g/dL (6.2-8.2)
== END | disposition home or self-care (01) ==
LOC: LABWHC1 07:39
PROVIDERS: ATTEND Internal Medicine Endocrinology, Diabetes & Metabolism
DX: E11.65 Type 2 diabetes mellitus with hyperglycemia (principal)
CPT/HCPCS: 36415; 80053; 80061; 82043; 82570; 83036; 84443

== ENCOUNTER → 2024-11-11 | Outpatient (CLI) | payer MEDICARE | END | disposition home or self-care (01) | LOC: LABWHC1 09:23 | PROVIDERS: ATTEND Internal Medicine Endocrinology, Diabetes & Metabolism | DX: E11.65 Type 2 diabetes mellitus with hyperglycemia (principal) | CPT/HCPCS: 36415; 83036 ==